=== PATIENT | male | born 1950 | race Caucasian/White ===

== ENCOUNTER → 2017-12-16 | Outpatient (CLI) | payer OTHER ==
[~2017-12-16] MED LIST: ASPI-113 PO; ASPI81TA21 PO; HYDR25TA4 PO; LOSA50TA6 PO; RANI150T85 PO
--- NOTE | 2017-12-16 11:15 | DIAGNOSTIC IMAGING REPORT ---
DUPLEX RENAL ARTERY CLINICAL HISTORY: 67 years-old Male presenting with RESISTENT HYPERTENSION.. TECHNIQUE: Real-time grayscale and color and spectral Doppler ultrasound imaging of the kidneys was performed. COMPARISON: 10/24/2009. FINDINGS: Right kidney: Normal echogenicity of renal parenchyma. Right kidney measures 12.4 cm. No hydronephrosis. No convincing evidence of calculus or mass. Intrarenal resistive indices range from 0.63 to 0.69. Normal intrarenal arterial waveforms. Renal artery patent with peak systolic velocity 53 cm/s proximally, 68 cm/s in the midportion, and 33 cm/s distally. Renal vein patent. Left kidney: Normal echogenicity of renal parenchyma. Left kidney measures 13.2 cm. No hydronephrosis. 2.1 cm cystic lesion at the lower pole. 10 mm hyperechogenic focus also at the lower pole with twinkling artifact suggestive of renal calculus. Intrarenal resistive indices range from 0.60 to 0.66. Normal intrarenal arterial waveforms. Renal artery patent with peak systolic velocity 64 cm/s proximally, 70 cm/s in the midportion, and 39 cm/s distally. Renal vein patent. Abdominal aorta: Patent. Peak systolic velocity 134 cm/s. Ratio of right renal artery PSV/aortic PSV: 0.51. Ratio of left renal artery PSV/aortic PSV: 0.52. Other: None. Reference ranges: Normal main renal artery peak systolic velocity less than 180 cm/s. Ratio of renal artery PSV to aortic PSV less than 3.5 equates to normal or less than 60% stenosis. IMPRESSION: 1. No evidence of renal artery stenosis. Normal renal resistive indices. 2. Possible nonobstructing left renal calculus. 3. No hydronephrosis. Electronically signed by: Thomas Pierce M.D. 12/16/2017 11:14 AM Dictated Date/Time: 12/16/2017 11:10 AM
== END | disposition home or self-care (01) ==
LOC: C.ULTR 10:06
PROVIDERS: ATTEND Family Medicine
DX: I10 Essential (primary) hypertension (principal)

== ENCOUNTER 2021-03-15 08:08 | Inpatient (IN) ==
--- NOTE | 2021-03-15 08:49 | Emergency Department Note ---
History of Present Illness General Chief complaint: Illness Stated complaint: FEVER,BACK PAIN,COUGH,DRY MOUTH Time Seen by Provider: 03/15/21 08:24 History of Present Illness Maximum Pain Intensity: 5 Kiran is a 71-year-old male with a history of hypertension who presents to the emergency department for shortness of breath and cough. Says that beginning about 10 days ago, he did develop a productive cough with clear sputum; also noticed that he had general shortness of breath both with exertion and at rest. He had a telehealth visit with his PCP on Friday, with the impression of his symptoms reported to be a bronchitis. He was prescribed both azithromycin and prednisone, both of which he has since finished. While he said he noticed an initial improvement, he said that his cough and shortness of breath have since returned and gotten worse. Denies any positional relationship to these. He does endorse a fever most days, with max temperatures reaching around 101. He also endorses chills, night sweats, myalgias. He denies any sick contacts that he is aware of; lives with his and he reports that she is healthy. Denies any recent travel. Denies any known exposure to Covid. Denies any loss of taste or smell. He denies any history of heart or lung problems. He does not require supplemental oxygen at home. He denies any smoking history or occupational hazards/risk factors. Upon his arrival, he was found to be tachycardic and hypoxic to the high 80s, requiring 2 to 4 L nasal cannula to achieve saturations between 90 and 92%. Home Medications Medication Instructions Recorded Confirmed Type losartan 50 mg PO DAILY #0 tab 10/17/12 03/15/21 History amlodipine 5 mg PO DAILY 03/15/21 03/15/21 History ascorbic acid (vitamin C) 1,000 mg PO DAILY 03/15/21 03/15/21 History cholecalciferol (vitamin D3) 5,000 units PO DAILY 03/15/21 03/15/21 History cyclobenzaprine 5 mg PO TID PRN 03/15/21 03/15/21 History furosemide 40 mg PO DAILY 03/15/21 03/15/21 History magnesium citrate 160 mg PO DAILY 03/15/21 03/15/21 History triamterene-hydrochlorothiazid 1 tab PO DAILY 03/15/21 03/15/21 History Allergies Allergy/AdvReac Type Severity Reaction Status Date / Time peanut Allergy Sneezing Unverified 03/15/21 11:26 Past Med/Surg History Medical History CKD (chronic kidney disease), stage III Dyslipidemia GERD (gastroesophageal reflux disease) HTN (hypertension) with goal to be determined JOHN (obstructive sleep apnea) Prediabetes Surgical History S/P skin cancer resection Social History Smoking Status: Never smoker Second Hand Exposure: Yes ( stopped 1990); Do You Dip or Chew Tobacco: No; Hx Alcohol Use: Yes Alcohol type: beer Hx Substance Use: No Preferred Language: Uzbek Communication Ability: Effective Unit Assembler Required: No Beliefs That Will Affect Care: None Current Living Situation: Spouse Other Information That Helps Us Care for You: No Feels Safe at Home: Yes Safety Concerns: Feels Safe At This Time Assistive Devices: Oxygen - Continuous Review of Systems See HPI for pertinent positives & negatives. and A total of 10 systems reviewed and were otherwise negative Physical Exam Vital Signs Vital Signs - 24 hr 03/15/21 08:16 Temperature 36.9 C Temperature Source Oral Pulse Rate 105 H Respiratory Rate 18 Blood Pressure 100/63 Blood Pressure Mean 75 Pulse Oximetry 88 L Oxygen Delivery Method Room Air Sepsis Recent Fever Within 48 Hours No Sepsis New/Unexplained Change in Mental Status N/A Sepsis Action Taken by Nursing No Action Required Vital signs reviewed. Noted to be hypoxic on room air. General: Somewhat ill-appearing 71 yo male, in no significant distress. HEENT: No scleral icterus, PERRLA, neck supple. Atraumatic. Cardiovascular: Regular rate and rhythm, no extra sounds. Pulmonary: Coarse breath sounds to auscultation bilaterally, normal work of breathing. Abdomen: Soft, nontender, nondistended, positive bowel sounds. Musculoskeletal: Atraumatic, no peripheral edema. Neurologic: Patient awake alert and oriented x 3 Skin: Warm, dry, no rash Course Administered Medications Acetaminophen (Acetaminophen 325 Mg Tab) 650 mg PO Q4H PRN PRN Reason: Pain or Fever Stop: 04/14/21 13:31 Last Admin: 03/16/21 01:12 Dose: 650 mg Documented by: [id number] Albuterol (Albuterol Hfa 8 Gm Inhaler) 2 puffs INH Q6H PRN PRN Reason: Shortness Of Breath Or Wheezin Stop: 04/14/21 13:31 Last Admin: 03/17/21 20:51 Dose: 2 puffs Documented by: [id number] Amlodipine Besylate (Amlodipine Besylate 5 Mg Tab) 5 mg PO DAILY WADE Stop: 04/15/21 08:59 Last Admin: 03/18/21 08:13 Dose: 5 mg Documented by: [id number] Admin: 03/17/21 08:31 Dose: 5 mg Documented by: [id number] Admin: 03/16/21 08:22 Dose: 5 mg Documented by: [id number] Ascorbic Acid (Ascorbic Acid 500 Mg Tab) 1,000 mg PO DAILY WADE Stop: 04/15/21 08:59 Last Admin: 03/18/21 08:13 Dose: 1,000 mg Documented by: [id number] Admin: 03/17/21 08:28 Dose: 1,000 mg Documented by: [id number] Admin: 03/16/21 08:23 Dose: 1,000 mg Documented by: [id number] Enoxaparin Sodium (Enoxaparin Inj 120 Mg/0.8 Ml Syr) 111 mg SQ Q12H WADE Stop: 04/17/21 08:59 Last Admin: 03/18/21 09:28 Dose: 111 mg Documented by: [id number] Famotidine (Famotidine 10 Mg Tablet) 10 mg PO BID [facility] Stop: 04/14/21 20:59 Last Admin: 03/18/21 08:11 Dose: 10 mg Documented by: [id number] Admin: 03/17/21 20:21 Dose: 10 mg Documented by: [id number] Admin: 03/17/21 08:33 Dose: 10 mg Documented by: [id number] Admin: 03/16/21 20:43 Dose: 10 mg Documented by: [id number] Admin: 03/16/21 08:20 Dose: 10 mg Documented by: [id number] Admin: 03/15/21 20:00 Dose: 10 mg Documented by: [id number] Folic Acid (Folic Acid 1 Mg Tab) 1 mg PO QAM WADE Stop: 04/15/21 08:59 Last Admin: 03/18/21 08:12 Dose: 1 mg Documented by: [id number] Admin: 03/17/21 08:29 Dose: 1 mg Documented by: [id number] Admin: 03/16/21 08:24 Dose: 1 mg Documented by: [id number] Furosemide (Furosemide 40 Mg Tab) 40 mg PO DAILY WADE Stop: 04/15/21 08:59 Last Admin: 03/16/21 08:24 Dose: 40 mg Documented by: [id number] Guaifenesin (Guaifenesin 600 Mg Tabcr) 600 mg PO Q12 WADE Stop: 04/15/21 20:59 Last Admin: 03/18/21 08:10 Dose: 600 mg Documented by: [id number] Admin: 03/17/21 20:22 Dose: 600 mg Documented by: [id number] Admin: 03/17/21 08:33 Dose: 600 mg Documented by: [id number] Admin: 03/16/21 20:43 Dose: 600 mg Documented by: [id number] Dexamethasone 6 mg/ Syringe 1.5 mls @ 1 mls/min IV DAILY WADE Stop: 03/24/21 09:02 Last Admin: 03/18/21 08:33 Dose: 1 mls/min Documented by: [id number] Admin: 03/17/21 09:05 Dose: 1 mls/min Documented by: [id number] Admin: 03/16/21 10:05 Dose: 1 mls/min Documented by: [id number] Remdesivir 100 mg/ Sodium (Chloride) 250 mls @ 250 mls/hr IV Q24H WADE; Protocol Stop: 03/19/21 12:59 Last Admin: 03/18/21 12:53 Dose: 250 mls/hr Documented by: [id number] Infusion: 03/17/21 18:58 Dose: 0 mls/hr Documented by: [id number] Admin: 03/17/21 11:58 Dose: 250 mls/hr Documented by: [id number] Infusion: 03/16/21 22:47 Dose: 0 mls/hr Documented by: [id number] Admin: 03/16/21 12:18 Dose: 250 mls/hr Documented by: [id number] Ceftriaxone Sodium 2,000 mg/ (Dextrose) 70 mls @ 100 mls/hr IV DAILY WADE; Protocol Stop: 03/23/21 15:14 Last Admin: 03/18/21 08:33 Dose: 100 mls/hr Documented by: [id number] Infusion: 03/17/21 09:06 Dose: 0 mls/hr Documented by: [id number] Admin: 03/17/21 08:21 Dose: 100 mls/hr Documented by: [id number] Infusion: 03/16/21 22:46 Dose: 0 mls/hr Documented by: [id number] Admin: 03/16/21 16:28 Dose: 100 mls/hr Documented by: [id number] Doxycycline Hyclate 100 mg/ (Dextrose) 110 mls @ 50 mls/hr IV Q12H WADE; Protocol Stop: 03/23/21 15:14 Last Admin: 03/18/21 14:14 Dose: 50 mls/hr Documented by: [id number] Infusion: 03/18/21 04:32 Dose: 0 mls/hr Documented by: [id number] Admin: 03/18/21 02:36 Dose: 50 mls/hr Documented by: [id number] Infusion: 03/17/21 20:19 Dose: 0 mls/hr Documented by: [id number] Admin: 03/17/21 15:22 Dose: 50 mls/hr Documented by: [id number] Infusion: 03/17/21 05:15 Dose: 0 mls/hr Documented by: [id number] Admin: 03/17/21 03:11 Dose: 50 mls/hr Documented by: [id number] Infusion: 03/16/21 22:46 Dose: 0 mls/hr Documented by: [id number] Admin: 03/16/21 16:29 Dose: 50 mls/hr Documented by: [id number] Insulin Aspart (Insulin Aspart 100 Units/Ml 3 Ml Pen) 0 units SC ACHS WADE Stop: 04/15/21 20:59 Last Admin: 03/18/21 08:00 Dose: 4 units Documented by: [id number] Cosigned by: [id number] Admin: 03/17/21 20:28 Dose: 1 units Documented by: [id number] Cosigned by: [id number] Admin: 03/17/21 17:00 Dose: 4 units Documented by: [id number] Cosigned by: [id number] Admin: 03/17/21 12:09 Dose: 3 units Documented by: [id number] Cosigned by: [id number] Admin: 03/17/21 09:00 Dose: Not Given Documented by: [id number] Cosigned by: [id number] Admin: 03/16/21 22:42 Dose: Not Given Documented by: [id number] Cosigned by: [id number] Losartan Potassium (Losartan Potassium 50 Mg Tab) 50 mg PO DAILY WADE Stop: 04/15/21 08:59 Last Admin: 03/16/21 08:23 Dose: 50 mg Documented by: [id number] Magnesium Oxide (Magnesium Oxide 400 Mg Tab) 400 mg PO DAILY WADE Stop: 04/15/21 08:59 Last Admin: 03/18/21 08:14 Dose: 400 mg Documented by: [id number] Admin: 03/17/21 08:33 Dose: 400 mg Documented by: [id number] Admin: 03/16/21 08:24 Dose: 400 mg Documented by: [id number] Sodium Chloride (Sodium Chloride 0.9% 10ml Flush) 30 ml IV Q24H WADE Stop: 03/19/21 14:01 Last Admin: 03/18/21 14:15 Dose: 30 ml Documented by: [id number] Admin: 03/17/21 13:19 Dose: 30 ml Documented by: [id number] Admin: 03/16/21 14:01 Dose: 30 ml Documented by: [id number] Admin: 03/15/21 16:42 Dose: 30 ml Documented by: [id number] Thiamine HCl (Thiamine Hcl 100 Mg Tab) 100 mg PO QAM WADE Stop: 04/15/21 08:59 Last Admin: 03/18/21 08:15 Dose: 100 mg Documented by: [id number] Admin: 03/17/21 08:32 Dose: 100 mg Documented by: [id number] Admin: 03/16/21 10:05 Dose: Not Given Documented by: [id number] Triamterene/Hydrochlorothiazide (Triamterene/Hctz 37.5/25mg Tab) 1 tab PO DAILY WADE Stop: 04/15/21 08:59 Last Admin: 03/16/21 08:25 Dose: 1 tab Documented by: [id number] Vitamin D (Cholecalciferol 1,000 Units 25 Mcg Tab) 5,000 units PO DAILY WADE Stop: 04/15/21 08:59 Last Admin: 03/18/21 08:11 Dose: 5,000 units Documented by: [id number] Admin: 03/17/21 08:30 Dose: 5,000 units Documented by: [id number] Admin: 03/16/21 08:20 Dose: 5,000 units Documented by: [id number] Discontinued Medications Al Hydrox/Mg Hydrox/Simethicone (Aluminum/Magnesium/Simeth (Maalox Max) 30 Ml Udc) 30 ml PO NOW STA Stop: 03/15/21 22:45 Last Admin: 03/15/21 23:08 Dose: Not Given Documented by: [id number] Hydrox/Mg Hydrox/Simethicone (Aluminum/Magnesium Susp 30 Ml Udc) Confirm Administered Dose 30 ml .ROUTE .STK-MED ONE Stop: 03/15/21 22:47 Last Admin: 03/15/21 23:08 Dose: Not Given Documented by: [id number] Albuterol (Albut/Ipratrop 3mg/0.5mg Neb 3 Ml Vial) 3 ml NEB NOW STA Stop: 03/15/21 08:55 Last Admin: 03/15/21 09:37 Dose: 3 ml Documented by: [id number] Dexamethasone (Dexamethasone Sod Inj 4 Mg/Ml Vial) Confirm Administered Dose 8 mg .ROUTE .STK-MED ONE Stop: 03/15/21 09:35 Last Admin: 03/15/21 10:13 Dose: 6 mg Documented by: [id number] Enoxaparin Sodium (Enoxaparin Inj 40 Mg/0.4 Ml Syr) 40 mg SQ QAM WADE Stop: 04/14/21 13:31 Last Admin: 03/15/21 16:40 Dose: 40 mg Documented by: [id number] Heparin Sodium/Dextrose (Heparin Iv Adult Wt-Based Standard *No* Bolus Protocol) 1 ea IV Q15M WADE; Protocol Stop: 03/16/21 01:26 Last Admin: 03/16/21 00:22 Dose: Not Given Documented by: [id number] Admin: 03/15/21 23:52 Dose: Not Given Documented by: [id number] Sodium Chloride (Nss 1000ml) 1,000 mls @ 999 mls/hr IV .Q1H1M WADE Stop: 03/15/21 10:00 Last Infusion: 03/15/21 16:38 Dose: 0 mls/hr Documented by: [id number] Admin: 03/15/21 10:13 Dose: 999 mls/hr Documented by: [id number] Dexamethasone 6 mg/ Syringe 1.5 mls @ 1 mls/min IV ONE ONE Stop: 03/15/21 08:56 Last Admin: 03/15/21 10:14 Dose: Not Given Documented by: [id number] Potassium Chloride (K [place] / Wtr) 10 meq in 100 mls @ 100 mls/hr IV ONE ONE Stop: 03/15/21 11:07 Last Infusion: 03/15/21 11:14 Dose: 0 mls/hr Documented by: [id number] Admin: 03/15/21 10:14 Dose: 100 mls/hr Documented by: [id number] Potassium Phosphate 15 mmol/ (Sodium Chloride) 255 mls @ 88 mls/hr IV NOW STA Stop: 03/15/21 13:07 Last Infusion: 03/15/21 16:37 Dose: 0 mls/hr Documented by: [id number] Admin: 03/15/21 11:21 Dose: 88 mls/hr Documented by: [id number] Potassium Chloride/Sodium Chloride (Normal Saline W/20 Meq Kcl) 20 meq in 1,000 mls @ 100 mls/hr IV .Q10H ONE Stop: 03/15/21 23:59 Last Infusion: 03/16/21 00:15 Dose: 0 mls/hr Documented by: [id number] Admin: 03/15/21 16:38 Dose: 100 mls/hr Documented by: [id number] Remdesivir 200 mg/ Sodium (Chloride) 250 mls @ 125 mls/hr IV ONE ONE; Protocol Stop: 03/15/21 15:59 Last Infusion: 03/15/21 16:38 Dose: 0 mls/hr Documented by: [id number] Admin: 03/15/21 14:30 Dose: 125 mls/hr Documented by: [id number] Heparin Sodium/Dextrose (Heparin Sodium/Dextrose) 25,000 units in 500 mls @ 0 mls/hr IV .Q0M WADE; Protocol Stop: 04/14/21 23:54 Last Titration: 03/18/21 07:08 Dose: 1,450 units/hr, 29 mls/hr Documented by: [id number] Cosigned by: [id number] Admin: 03/18/21 01:04 Dose: 1,450 units/hr, 29 mls/hr Documented by: [id number] Cosigned by: [id number] Titration: 03/18/21 01:04 Dose: 1,450 units/hr, 29 mls/hr Documented by: [id number] Cosigned by: [id number] Titration: 03/17/21 18:58 Dose: 1,450 units/hr, 29 mls/hr Documented by: [id number] Cosigned by: [id number] Titration: 03/17/21 15:00 Dose: 1,450 units/hr, 29 mls/hr Documented by: [id number] Cosigned by: [id number] Titration: 03/17/21 09:14 Dose: 1,450 units/hr, 29 mls/hr Documented by: [id number] Cosigned by: [id number] Titration: 03/17/21 07:35 Dose: 0 units/hr, 0 mls/hr Documented by: [id number] Cosigned by: [id number] Titration: 03/17/21 07:08 Dose: 1,650 units/hr, 33 mls/hr Documented by: [id number] Cosigned by: [id number] Admin: 03/17/21 06:20 Dose: 1,650 units/hr, 33 mls/hr Documented by: [id number] Cosigned by: [id number] Titration: 03/17/21 06:20 Dose: 1,650 units/hr, 33 mls/hr Documented by: [id number] Cosigned by: [id number] Titration: 03/16/21 19:12 Dose: 1,650 units/hr, 33 mls/hr Documented by: [id number] Cosigned by: [id number] Admin: 03/16/21 15:17 Dose: 1,650 units/hr, 33 mls/hr Documented by: [id number] Cosigned by: [id number] Titration: 03/16/21 15:17 Dose: 1,650 units/hr, 33 mls/hr Documented by: [id number] Cosigned by: [id number] Admin: 03/16/21 00:30 Dose: 1,650 units/hr, 33 mls/hr Documented by: [id number] Cosigned by: [id number] Potassium Chloride (K [place] / Wtr) 10 meq in 100 mls @ 100 mls/hr IV Q1H WADE Stop: 03/16/21 04:59 Last Infusion: 03/16/21 22:48 Dose: 0 mls/hr Documented by: [id number] Admin: 03/16/21 05:22 Dose: 100 mls/hr Documented by: [id number] Infusion: 03/16/21 05:05 Dose: 100 mls/hr Documented by: [id number] Admin: 03/16/21 04:05 Dose: 100 mls/hr Documented by: [id number] Infusion: 03/16/21 03:37 Dose: 100 mls/hr Documented by: [id number] Admin: 03/16/21 02:37 Dose: 100 mls/hr Documented by: [id number] Infusion: 03/16/21 02:12 Dose: 100 mls/hr Documented by: [id number] Admin: 03/16/21 01:12 Dose: 100 mls/hr Documented by: [id number] Furosemide 40 mg/ Syringe 4 mls @ 4 mls/min IV ONE ONE Stop: 03/16/21 16:34 Last Admin: 03/16/21 18:25 Dose: 4 mls/min Documented by: [id number] Tocilizumab 800 mg/ Sodium (Chloride) 100 mls @ 100 mls/hr IV NOW ONE Stop: 03/16/21 17:44 Last Infusion: 03/16/21 22:43 Dose: 0 mls/hr Documented by: [id number] Admin: 03/16/21 20:42 Dose: 100 mls/hr Documented by: [id number] Miscellaneous (Heparin Gtt - Stop Order) 1 ea N/A ONE ONE Stop: 03/18/21 09:01 Last Admin: 03/18/21 08:36 Dose: 1 ea Documented by: [id number] Morphine Sulfate (Morphine Sulfate 2 Mg/Ml Carp) Confirm Administered Dose 2 mg .ROUTE .STK-MED ONE Stop: 03/15/21 23:03 Last Admin: 03/15/21 23:03 Dose: 2 mg Documented by: [id number] Morphine Sulfate (Morphine Sulfate 2 Mg/Ml Carp) 2 mg IV NOW STA Stop: 03/15/21 23:02 Last Admin: 03/15/21 23:09 Dose: Not Given Documented by: [id number] Potassium Chloride (Potassium Chloride 20 Meq/15 Ml Udc) 40 meq PO NOW STA Stop: 03/15/21 10:05 Last Admin: 03/15/21 10:52 Dose: Not Given Documented by: [id number] Potassium Chloride (Potassium Chloride Crtab 20 Meq Tabcr) 40 meq PO TODAY@1332 WADE Stop: 03/15/21 17:15 Last Admin: 03/15/21 17:15 Dose: 40 meq Documented by: [id number] Potassium Chloride (Potassium Chloride Crtab 20 Meq Tabcr) 40 meq PO ONE ONE Stop: 03/15/21 22:57 Last Admin: 03/15/21 23:52 Dose: 40 meq Documented by: [id number] Potassium Phosphate (Potassium Phos 3 Mmol/1 Ml Infusion) 15 mmol IV NOW STA Stop: 03/15/21 10:06 Last Admin: 03/15/21 10:52 Dose: Not Given Documented by: [id number] Medical Decision Making Differential Diagnosis Reactive airway disease, pneumonia, COVID, pneumothorax, COPD, CHF, infections, cardiac ischemia, pulmonary embolism, musculoskeletal, gastrointestinal, as well as other pathologies. Medical Records Attestation: I reviewed the patient's medical records. Home Medications Current Medication List: was personally reviewed by me Laboratory Data Attestation: I reviewed the patient's lab results. Result diagrams: 03/16/21 06:32 03/18/21 06:18 Lab Results 03/15/21 03/15/21 03/15/21 Range/Units 08:55 08:55 08:57 WBC 7.09 (4.8-10.8) K/uL RBC 4.67 L (4.7-6.1) M/uL Hgb 14.3 (14.0-18.0) g/dL Hct 41.9 L (42-52) % MCV 89.7 (80-100) fL MCH 30.6 (25-34) pg MCHC 34.1 (32-36) g/dL RDW Std Deviation 43.2 (36.4-46.3) fL RDW Coeff of Anni 13.2 (11.5-14.5) % Plt Count 217 (130-400) K/uL MPV 9.3 (7.4-10.4) fL Immature Gran % (Auto) 0.1 % Neut % (Auto) 85.5 % Lymph % (Auto) 10.9 % [place] % (Auto) 3.4 % Eos % (Auto) 0.0 % Baso % (Auto) 0.1 % Neut # (Auto) 6.06 (1.4-6.5) K/uL Lymph # (Auto) 0.77 L (1.2-3.4) K/uL [place] # (Auto) 0.24 (0.11-0.59) K/uL Eos # (Auto) 0.00 (0-0.5) K/uL Baso # (Auto) 0.01 (0-0.2) K/uL Immature Gran # (Auto) 0.01 (0.00-0.02) K/uL PT (9.0-12.0) Seconds INR (0.9-1.1) APTT (21.0-31.0) Seconds PTT Ratio Sodium (136-145) mmol/L Potassium (3.5-5.1) mmol/L Chloride (98-107) mmol/L Carbon Dioxide (21-32) mmol/L Anion Gap (3-11) BUN (7-18) mg/dl Creatinine (0.6-1.4) mg/dl Est Cr Clr Drug Dosing ml/min Est GFR ( Amer) ml/min Est GFR (Non-Af Amer) ml/min BUN/Creatinine Ratio (10-20) Glucose (70-99) mg/dl Lactate (0.4-2.0) mmol/L Calcium (8.5-10.1) mg/dl Phosphorus (2.5-4.9) mg/dl Magnesium (1.8-2.4) mg/dl Total Bilirubin (0.2-1) mg/dl AST (15-37) U/L ALT (12-78) U/L Alkaline Phosphatase (45-117) U/L Troponin I (0-0.045) ng/ml Total Protein (6.4-8.2) gm/dl Albumin (3.4-5.0) gm/dl Globulin (2.5-4.0) gm/dl Albumin/Globulin Ratio (0.9-2) Procalcitonin (0-0.5) ng/ml COVID-19 Eval Order Covid19 at [facility] SARS-CoV-2 (PCR) POSITIVE A* (Negative) 03/15/21 03/15/21 03/15/21 Range/Units 08:57 08:57 08:57 WBC (4.8-10.8) K/uL RBC (4.7-6.1) M/uL Hgb (14.0-18.0) g/dL Hct (42-52) % MCV (80-100) fL MCH (25-34) pg MCHC (32-36) g/dL RDW Std Deviation (36.4-46.3) fL RDW Coeff of Anni (11.5-14.5) % Plt Count (130-400) K/uL MPV (7.4-10.4) fL Immature Gran % (Auto) % Neut % (Auto) % Lymph % (Auto) % [place] % (Auto) % Eos % (Auto) % Baso % (Auto) % Neut # (Auto) (1.4-6.5) K/uL Lymph # (Auto) (1.2-3.4) K/uL [place] # (Auto) (0.11-0.59) K/uL Eos # (Auto) (0-0.5) K/uL Baso # (Auto) (0-0.2) K/uL Immature Gran # (Auto) (0.00-0.02) K/uL PT 10.4 (9.0-12.0) Seconds INR 1.0 (0.9-1.1) APTT 29.3 (21.0-31.0) Seconds PTT Ratio 1.1 Sodium 132 L (136-145) mmol/L Potassium 2.5 L* (3.5-5.1) mmol/L Chloride 96 L (98-107) mmol/L Carbon Dioxide 28 (21-32) mmol/L Anion Gap 7.0 (3-11) BUN 23 H (7-18) mg/dl Creatinine 1.58 H (0.6-1.4) mg/dl Est Cr Clr Drug Dosing 55.0 ml/min Est GFR ( Amer) 50.3 ml/min Est GFR (Non-Af Amer) 43.4 ml/min BUN/Creatinine Ratio 14.8 (10-20) Glucose 135 H (70-99) mg/dl Lactate 1.3 (0.4-2.0) mmol/L Calcium 8.3 L (8.5-10.1) mg/dl Phosphorus (2.5-4.9) mg/dl Magnesium 2.4 (1.8-2.4) mg/dl Total Bilirubin 0.5 (0.2-1) mg/dl AST 64 H (15-37) U/L ALT 54 (12-78) U/L Alkaline Phosphatase 63 (45-117) U/L Troponin I 0.025 (0-0.045) ng/ml Total Protein 7.1 (6.4-8.2) gm/dl Albumin 2.7 L (3.4-5.0) gm/dl Globulin 4.4 H (2.5-4.0) gm/dl Albumin/Globulin Ratio 0.6 L (0.9-2) Procalcitonin (0-0.5) ng/ml COVID-19 Eval Order SARS-CoV-2 (PCR) (Negative) 03/15/21 03/15/21 Range/Units 08:57 10:08 WBC (4.8-10.8) K/uL RBC (4.7-6.1) M/uL Hgb (14.0-18.0) g/dL Hct (42-52) % MCV (80-100) fL MCH (25-34) pg MCHC (32-36) g/dL RDW Std Deviation (36.4-46.3) fL RDW Coeff of Anni (11.5-14.5) % Plt Count (130-400) K/uL MPV (7.4-10.4) fL Immature Gran % (Auto) % Neut % (Auto) % Lymph % (Auto) % [place] % (Auto) % Eos % (Auto) % Baso % (Auto) % Neut # (Auto) (1.4-6.5) K/uL Lymph # (Auto) (1.2-3.4) K/uL [place] # (Auto) (0.11-0.59) K/uL Eos # (Auto) (0-0.5) K/uL Baso # (Auto) (0-0.2) K/uL Immature Gran # (Auto) (0.00-0.02) K/uL PT (9.0-12.0) Seconds INR (0.9-1.1) APTT (21.0-31.0) Seconds PTT Ratio Sodium (136-145) mmol/L Potassium (3.5-5.1) mmol/L Chloride (98-107) mmol/L Carbon Dioxide (21-32) mmol/L Anion Gap (3-11) BUN (7-18) mg/dl Creatinine (0.6-1.4) mg/dl Est Cr Clr Drug Dosing ml/min Est GFR ( Amer) ml/min Est GFR (Non-Af Amer) ml/min BUN/Creatinine Ratio (10-20) Glucose (70-99) mg/dl Lactate (0.4-2.0) mmol/L Calcium (8.5-10.1) mg/dl Phosphorus 2.4 L (2.5-4.9) mg/dl Magnesium (1.8-2.4) mg/dl Total Bilirubin (0.2-1) mg/dl AST (15-37) U/L ALT (12-78) U/L Alkaline Phosphatase (45-117) U/L Troponin I (0-0.045) ng/ml Total Protein (6.4-8.2) gm/dl Albumin (3.4-5.0) gm/dl Globulin (2.5-4.0) gm/dl Albumin/Globulin Ratio (0.9-2) Procalcitonin 0.38 (0-0.5) ng/ml COVID-19 Eval Order SARS-CoV-2 (PCR) (Negative) Imaging Data Radiologist's Impression: Chest X-Ray 03/15/21 08:51 XR chest 1V portable HISTORY: SEPSIS COMPARISON: Chest 10/17/2012. FINDINGS: No pneumothorax. No pleural effusions. The heart is mildly enlarged. There are patchy peripheral bilateral airspace opacities, right greater than left. There is mild elevation of the right hemidiaphragm, unchanged. IMPRESSION: Hazy patchy peripheral airspace opacities, right greater than left. This favors a viral pneumonia. ACT 112: Negative or not required by law. Electronically signed by: Preston Dennis M.D. 03/15/2021 9:38 AM ECG Data Attestation: I personally reviewed and interpreted this ECG as follows: Indication: + SOB/dyspnea Rate (beats per minute): 98 Rhythm: + normal sinus ECG Intervals/blocks: + Right Bundle branch block and + Prolonged QT (492) ECG Findings: + Q waves (Inferior) and + PVCs Blood Pressure Blood Pressure Findings: Elevated blood pressure Blood Pressure Disposition: further management by hospitalist MDM Narrative This patient was evaluated and appeared to be in no significant distress. IV access was obtained in laboratory work was drawn. In order for cardiac monitoring was placed in the patient is noted to be in a normal sinus rhythm with occasional PVCs. Patient was placed on nasal cannula oxygen As he was noted to be hypoxic on room air. Chest x-ray was performed and reveals bilateral pulmonary infiltrates consistent with viral pneumonia. Patient Covid swab was positive. He did receive IV dexamethasone and they do another treatment. He was hydrated with normal saline solution. Laboratory work is consistent with viral ideology. Patient lives at home with his , who is also ill but less so, per his account. Patient will require hospitalization for further treatment of the viral pneumonitis and hypoxia. He's expressed an understanding of the plan and agrees. The hospitalist was consulted for admission and further management. Impression & Plan Pneumonia due to COVID-19 virus, Acute respiratory failure with hypoxia Discharge Plan Visit Data Chief Complaint: Illness Stated Complaint: FEVER,BACK PAIN,COUGH,DRY MOUTH ED Provider: Jesica Garcia ED Midlevel Provider: Lloyd Montes De Oca. Discharge Problem: Pneumonia due to COVID-19 virus, Acute respiratory failure with hypoxia Patient Disposition: Admitted As Inpatient Discharge Instructions Interventions: ED Discharge Assessment Last Done: 03/15/21 13:17
[2021-03-15] MEDS ORDERED: ALBUT/IPRATROP 3MG/0.5MG NEB 3 ML VIAL NEB STA (08:54)
[2021-03-15] MEDS ORDERED: dexAMETHasone 6 MG in SYRINGE 0 ML IV ONE (08:55)
[2021-03-15] MEDS ORDERED: SODIUM CHLORIDE 0.9% 1000ML 1,000 ML IV SCH (09:00)
[2021-03-15 09:11] LABS: Basophils # (auto) 0.01 K/uL (0-0.2); Basophils % (auto) 0.1 %; Hematocrit (blood only) 41.9 % (42-52); Hemoglobin 14.3 g/dL (14.0-18.0); Immature Granulocytes # (auto) 0.01 K/uL (0.00-0.02); Immature Granulocytes % (auto) 0.1 %; Lymphocytes # (auto) 0.77 K/uL (1.2-3.4); Lymphocytes % (auto) 10.9 %; Mean Corpuscular Hemoglobin 30.6 pg (25-34); Mean Corpuscular Hgb Conc 34.1 g/dL (32-36); Mean Corpuscular Volume 89.7 fL (80-100); Mean Platelet Volume 9.3 fL (7.4-10.4); Monocytes # (auto) 0.24 K/uL (0.11-0.59); Monocytes % (auto) 3.4 %; Neutrophils # (auto) 6.06 K/uL (1.4-6.5); Neutrophils % (auto) 85.5 %; Platelet Count 217 K/uL (130-400); RDW Coefficient of Variation 13.2 % (11.5-14.5); RDW Standard Deviation 43.2 fL (36.4-46.3); Red Blood Count 4.67 M/uL (4.7-6.1); White Blood Count 7.09 K/uL (4.8-10.8)
[2021-03-15 09:23] LABS: Partial Thromboplastin Ratio 1.1; Partial Thromboplastin Time 29.3 Seconds (21.0-31.0); Prothrombin Time 10.4 Seconds (9.0-12.0)
[2021-03-15] MEDS ORDERED: DEXAMETHASONE SOD INJ 4 MG/ML VIAL ONE (09:34)
--- NOTE | 2021-03-15 09:39 | XRay Report ---
XR chest 1V portable HISTORY: SEPSIS COMPARISON: Chest 10/17/2012. FINDINGS: No pneumothorax. No pleural effusions. The heart is mildly enlarged. There are patchy perip heral bilateral airspace opacities, right greater than left. There is mild elevation of the right hem idiaphragm, unchanged. IMPRESSION: Hazy patchy peripheral airspace opacities, right greater than left. This favors a viral pneumonia. ACT 112: Negative or not required by law. Electronically signed by: Preston Dennis M.D. 03/15/2021 9:38 AM
[2021-03-15 09:53] LABS: Albumin Globulin Ratio 0.6 (0.9-2); Albumin Level 2.7 gm/dl (3.4-5.0); BUN Creatinine Ratio 14.8 (10-20); Bilirubin,Total 0.5 mg/dl (0.2-1); Calcium 8.3 mg/dl (8.5-10.1); Est GFR (African American) 50.3 ml/min; Est GFR (Non-African American) 43.4 ml/min; Globulin 4.4 gm/dl (2.5-4.0); Magnesium 2.4 mg/dl (1.8-2.4); Total Protein 7.1 gm/dl (6.4-8.2); Troponin I 0.025 ng/ml (0-0.045)
[2021-03-15 10:02] LABS: Potassium 2.5 mmol/L (3.5-5.1)
[2021-03-15] MEDS ORDERED: POTASSIUM CHLORIDE 20 MEQ/15 ML UDC PO STA (10:04)
[2021-03-15] MEDS ORDERED: POTASSIUM PHOS 3 MMOL/1 ML INFUSION IV STA (10:05)
[2021-03-15] MEDS ORDERED: POTASSIUM CHLORIDE / WTR 10 MEQ/100 ML PLCT IV ONE (10:08)
[2021-03-15] MEDS ORDERED: POTASSIUM PHOSPHATE 15 MMOL in SODIUM CHLORIDE 0.9% 250 ML IV STA (10:14)
[2021-03-15] MEDS ORDERED: POTASSIUM CHLORIDE / WTR 10 MEQ/100 ML PLCT IV SCH (10:15)
--- NOTE | 2021-03-15 10:32 | History & Physical Report ---
Date of Service March 15, 2021 Assessment & Plan (1) Pneumonia due to COVID-19 virus: Acute respiratory failure with hypoxia Multifocal COVID pneumonia COVID Screen: Positive on March 15, 2021 CXR:Hazy patchy peripheral airspace opacities, right greater than left. This favors a viral pneumonia. Procalcitonin: Normal Troponin negative CRP, Ferritin--Pending Blood Cultures obtained Start on Remdesivir, Dexamethasone Isolation precautions--Airborne/Contact Encourage frequent Proning Lasix as needed Albuterol PRN Continue Supplemental Oxygen as needed DVT prophylaxis-Lovenox SQ Monitor LFTs, renal function while on Remdesivir Hypokalemia Likely secondary to diuretics, poor oral intake Potassium levels 2.5 Replace potassium supplements as needed Normal magnesium levels Prediabetes Last HbA1c 6.4 in 2020 Update A1c Abnormal EKG Denies any anginal symptoms Initial troponin negative Trend troponin Repeat EKG in the morning Consider echo if needed Mild hyponatremia Sodium levels 132 We will give gentle IV fluids Monitor sodium levels CKD stage III Baseline creatinine 1.4 Creatinine 1.58 Monitor renal function while on remdesivir, diuretics Avoid nephrotoxic agents as able Hypertension Continue losartan, triamterene hydrochlorothiazide, amlodipine Monitor blood pressure Hypothyroidism As per records Currently not on any levothyroxine Obstructive sleep apnea Intolerance to CPAP DVT prophylaxis Lovenox SQ CODE STATUS Full code Disposition Expected discharge home when medically stable. History of Present Illness Chief Complaint: Shortness of breath, cough Primary Care Provider: Alban Gordillo DO Patient is a 71-year-old male with history of hypertension, CKD stage III, obstructive sleep apnea and intolerance to CPAP, prediabetes, dyslipidemia, GERD, hypothyroidism as per records and other medical problems presents with history of worsening shortness of breath, cough with clear expectoration since 10 days duration. Patient recently completed a course of azithromycin, prednisone for 5 days prescribed by PCP without any relief. He states having dyspnea at rest and with activity as well. Also states having decreased appetite, generalized weakness. He denies any sick contact, recent travel. He admits to having fever since 3 days duration intermittently. Patient reports sotelo ving low back pain intermittently since past 2 years, dull aching in nature, nonradiating, not associated with any spasms. He has been using ibuprofen, Tylenol on and off for controlling his back pain. Denies any history of chest pain, palpitations, dizziness, pedal edema, wheezing, hemoptysis, headache, change in vision, nausea, vomiting, abdominal pain, dysuria, hematuria, loss of taste or smell. Allergies Allergy/AdvReac Type Severity Reaction Status Date / Time peanut Allergy Sneezing Unverified 03/15/21 11:26 Home Medications Medication Instructions Recorded Confirmed Type losartan 50 mg PO DAILY #0 tab 10/17/12 03/15/21 History amlodipine 5 mg PO DAILY 03/15/21 03/15/21 History ascorbic acid (vitamin C) 1,000 mg PO DAILY 03/15/21 03/15/21 History cholecalciferol (vitamin D3) 5,000 units PO DAILY 03/15/21 03/15/21 History cyclobenzaprine 5 mg PO TID PRN 03/15/21 03/15/21 History furosemide 40 mg PO DAILY 03/15/21 03/15/21 History magnesium citrate 160 mg PO DAILY 03/15/21 03/15/21 History triamterene-hydrochlorothiazid 1 tab PO DAILY 03/15/21 03/15/21 History Past Med/Surg History Medical History CKD (chronic kidney disease), stage III Dyslipidemia GERD (gastroesophageal reflux disease) HTN (hypertension) with goal to be determined JOHN (obstructive sleep apnea) Prediabetes Surgical History S/P skin cancer resection Social History Smoking Status: Never smoker Hx Alcohol Use: Yes Preferred Language: Vincentian Feels Safe at Home: Yes Review of Systems Review of Systems: All systems reviewed & are unremarkable except as noted in HPI & below Physical Exam Physical Exam: Physical Exam: Vitals signs as noted above General Appearance:Moderately built and nourished, no apparent distress Head: normocephalic, Atraumatic Eyes: normal inspection, EOMI Neck: supple, Trachea midline Respiratory/Chest: Decreased breath sounds, CTA, No accessory muscle use Cardiovascular: S1, S2, No murmur Abdomen/GI:Soft, Non tender, Bowel sounds present Extremities/Musculoskeletal:normal inspection, no edema Neurologic/Psych:AAOX3, grossly no focal neurological deficits Skin: normal color, warm Results & Data Results & Data ([facility]) Vital Signs (Past 12 Hours) Vital Signs Temp Pulse Resp BP Pulse Ox 03/15/21 10:17 36.7 C 03/15/21 10:00 96 H 19 124/68 94 03/15/21 09:38 18 97 03/15/21 09:30 95 H 22 97/65 L 98 03/15/21 09:10 96 H 18 101/71 93 03/15/21 08:55 22 94 03/15/21 08:50 94 03/15/21 08:16 36.9 C 105 H 18 100/63 88 L Laboratory Results Short CBC 03/15/21 Range/Units 08:57 WBC 7.09 (4.8-10.8) K/uL Hgb 14.3 (14.0-18.0) g/dL Hct 41.9 L (42-52) % Plt Count 217 (130-400) K/uL BMP 03/15/21 08:57 Sodium 132 L Potassium 2.5 L* Chloride 96 L Carbon Dioxide 28 BUN 23 H Creatinine 1.58 H Glucose 135 H Calcium 8.3 L Cardiac Enzymes 03/15/21 Range/Units 08:57 Troponin I 0.025 (0-0.045) ng/ml Liver Function 03/15/21 Range/Units 08:57 Total Bilirubin 0.5 (0.2-1) mg/dl AST 64 H (15-37) U/L ALT 54 (12-78) U/L Alkaline Phosphatase 63 (45-117) U/L Albumin 2.7 L (3.4-5.0) gm/dl Diagnostic Findings CXR: Hazy patchy peripheral airspace opacities, right greater than left. This favors a viral pneumonia. ECG Additional Comments: EKG: Normal sinus rhythm, occasional PVCs, right bundle branch block, nonspecific T wave changes in inferior leads.
[2021-03-15] MEDS ORDERED: ENOXAPARIN INJ 40 MG/0.4 ML SYR SQ SCH (13:32)
[2021-03-15] MEDS ORDERED: ACETAMINOPHEN 325 MG TAB PO PRN (13:32)
[2021-03-15] MEDS ORDERED: CYCLOBENZAPRINE HCL 5 MG TAB PO PRN (13:32)
[2021-03-15] MEDS ORDERED: oxyCODONE HCL IR 5 MG TAB (IMMEDIATE RELEASE) PO PRN (13:32)
[2021-03-15] MEDS ORDERED: POTASSIUM CHLORIDE CRTAB 20 MEQ TABCR PO SCH (13:32)
[2021-03-15] MEDS ORDERED: POTASSIUM CHLORIDE CRTAB 20 MEQ TABCR PO ONE ×2 (13:32→22:56)
[2021-03-15] MEDS ORDERED: POLYETHYLENE (MIRALAX) 17 GM PACK PO PRN (13:32)
[2021-03-15] MEDS ORDERED: NSS + 20MEQ KCL 20 MEQ/1,000 ML BAG IV ONE (14:00)
[2021-03-15] MEDS ORDERED: REMDESIVIR 200 MG in SODIUM CHLORIDE 0.9% 210 ML IV ONE (14:00)
--- NOTE | 2021-03-15 15:34 | Electrocardiogram Report ---
Test Reason : Blood Pressure : / mmHG Vent. Rate : 098 BPM Atrial Rate : 098 BPM P-R Int : 158 ms QRS Dur : 116 ms QT Int : 386 ms P-R-T Axes : 030 225 019 degrees QTc Int : 492 ms Sinus rhythm with occasional Premature ventricular complexes Possible Left atrial enlargement Right bundle branch block Inferior infarct , age undetermined Abnormal ECG When compared with ECG of 08-NOV-2009 15:03, Premature ventricular complexes are now Present Right bundle branch block has replaced Incomplete right bundle branch block Inferior infarct is now Present Confirmed by Cameron Pineda ([id number]) on 03/15/2021 3:34:38 PM Referred By: REFERRED SELF Confirmed By:Cameron Pineda
[2021-03-15] MEDS: SODIUM CHLORIDE 0.9% 10ML FLUSH IV SCH (16:42)
[2021-03-15 16:51] LABS: BUN Creatinine Ratio 16.1 (10-20); Blood Urea Nitrogen 24 mg/dl (7-18); Calcium 8.1 mg/dl (8.5-10.1); Carbon Dioxide 27 mmol/L (21-32); Chloride 100 mmol/L (98-107); Creatinine Clr Calc Pharmacy 57.5 ml/min; Est GFR (African American) 53.1 ml/min; Est GFR (Non-African American) 45.8 ml/min; Ferritin 887.9 ng/ml (8-388); Glucose 225 mg/dl (70-99); Sodium 134 mmol/L (136-145); Troponin I < 0.015 ng/ml (0-0.045)
[2021-03-15 17:36] LABS: Appearance Urine Clear (Clear); Bacteria Urine Automated Negative (Negative); Bilirubin Urine Negative (Negative); Blood Urine 1+ (Negative); Color Urine Dark Yellow; Epithelial Cell Urine Auto >30 /lpf (0-5); Glucose Urine UA 2+ (Negative); Ketones Urine Trace (Negative); Leukocyte Esterase Urine Negative (Negative); Nitrite Urine Negative (Negative); Protein Urine 2+ (Negative); RBC Urine Automated 0-4 /hpf (0-4); Urobilinogen Urine Negative (Negative); pH Urine 5.5 (4.5-7.5)
[2021-03-15 17:49] LABS: Cast Urine Automated >30 /lpf (0-5)
[2021-03-15 17:50] LABS: Renal Epithelial Cells Urine 0-5 /lpf (0-5)
[2021-03-15] MEDS: FAMOTIDINE 10 MG TABLET PO SCH (20:00)
[2021-03-15] MEDS ORDERED: ALUMINUM/MAGNESIUM/SIMETH (MAALOX MAX) 30 ML UDC PO STA (22:44)
[2021-03-15] MEDS ORDERED: ALUMINUM/MAGNESIUM SUSP 30 ML UDC ONE (22:46)
[2021-03-15] MEDS ORDERED: MoRPHine SULFATE 2 MG/ML CARP IV STA (23:01)
[2021-03-15] MEDS ORDERED: MoRPHine SULFATE 2 MG/ML CARP ONE (23:02)
[2021-03-15 23:31] LABS: Base Excess ABG 0.1 mEq/L (-9-1.8); HCO3 ABG 23 mmol/L (19-24); Oxygen Saturation ABG 96.3 % (90-95); PCO2 ABG 32 mmHg (35-46); PO2 ABG 76 mmHg (80-95); pH ABG 7.48 (7.35-7.45)
[2021-03-15 23:33] LABS: Allen Test Pos (Pos)
[2021-03-15 23:52] LABS: Hematocrit (blood only) 43.1 % (42-52); Hemoglobin 14.8 g/dL (14.0-18.0); Mean Corpuscular Hemoglobin 31.1 pg (25-34); Mean Corpuscular Hgb Conc 34.3 g/dL (32-36); Mean Corpuscular Volume 90.5 fL (80-100); Mean Platelet Volume 9.4 fL (7.4-10.4); Platelet Count 267 K/uL (130-400); RDW Coefficient of Variation 13.3 % (11.5-14.5); RDW Standard Deviation 44.4 fL (36.4-46.3); Red Blood Count 4.76 M/uL (4.7-6.1); White Blood Count 9.66 K/uL (4.8-10.8)
[2021-03-15] MEDS: Heparin IV Adult Wt-Based Standard *NO* Bolus Protocol IV SCH (23:52)
[2021-03-16 00:09] LABS: Alanine Aminotransferase 71 U/L (12-78); Albumin Level 2.8 gm/dl (3.4-5.0); Aspartate Aminotransferase 89 U/L (15-37); BUN Creatinine Ratio 16.3 (10-20); Blood Urea Nitrogen 26 mg/dl (7-18); Calcium 8.5 mg/dl (8.5-10.1); Carbon Dioxide 26 mmol/L (21-32); Chloride 98 mmol/L (98-107); Creatinine Clr Calc Pharmacy 54.3 ml/min; Est GFR (African American) 49.5 ml/min; Est GFR (Non-African American) 42.7 ml/min; Glucose 135 mg/dl (70-99); Potassium 3.3 mmol/L (3.5-5.1); Sodium 135 mmol/L (136-145)
[2021-03-16 00:14] LABS: Albumin Globulin Ratio 0.6 (0.9-2); Alkaline Phosphatase 83 U/L (45-117); Bilirubin,Total 0.5 mg/dl (0.2-1); Total Protein 7.8 gm/dl (6.4-8.2); Troponin I < 0.015 ng/ml (0-0.045)
[2021-03-16 00:22] LABS: Basophils # (auto) 0.01 K/uL (0-0.2); Basophils % (auto) 0.1 %; Immature Granulocytes # (auto) 0.01 K/uL (0.00-0.02); Immature Granulocytes % (auto) 0.1 %; Lymphocytes # (auto) 1.51 K/uL (1.2-3.4); Lymphocytes % (auto) 15.6 %; Monocytes # (auto) 0.49 K/uL (0.11-0.59); Monocytes % (auto) 5.1 %; Neutrophils # (auto) 7.64 K/uL (1.4-6.5); Neutrophils % (auto) 79.1 %
[2021-03-16] MEDS: Heparin IV Adult Wt-Based Standard *NO* Bolus Protocol IV SCH (00:22)
[2021-03-16] MEDS: HEPARIN SODIUM/DEXTROSE 25,000 UNITS/500 ML BAG IV SCH ×2 (00:30→15:17)
[2021-03-16] MEDS: POTASSIUM CHLORIDE / WTR 10 MEQ/100 ML PLCT IV SCH ×4 (01:12→05:22)
[2021-03-16 06:50] LABS: Hematocrit (blood only) 39.7 % (42-52); Hemoglobin 13.6 g/dL (14.0-18.0); Mean Corpuscular Hemoglobin 30.6 pg (25-34); Mean Corpuscular Hgb Conc 34.3 g/dL (32-36); Mean Corpuscular Volume 89.2 fL (80-100); Mean Platelet Volume 9.2 fL (7.4-10.4); Platelet Count 228 K/uL (130-400); RDW Coefficient of Variation 13.4 % (11.5-14.5); RDW Standard Deviation 44.5 fL (36.4-46.3); Red Blood Count 4.45 M/uL (4.7-6.1); White Blood Count 9.93 K/uL (4.8-10.8)
[2021-03-16 07:08] LABS: Basophils # (auto) 0.01 K/uL (0-0.2); Basophils % (auto) 0.1 %; Immature Granulocytes # (auto) 0.01 K/uL (0.00-0.02); Immature Granulocytes % (auto) 0.1 %; Lymphocytes # (auto) 1.77 K/uL (1.2-3.4); Lymphocytes % (auto) 17.8 %; Monocytes # (auto) 0.36 K/uL (0.11-0.59); Monocytes % (auto) 3.6 %; Neutrophils # (auto) 7.78 K/uL (1.4-6.5); Neutrophils % (auto) 78.4 %
[2021-03-16 07:14] LABS: Partial Thromboplastin Ratio 1.8
[2021-03-16 07:16] LABS: BUN Creatinine Ratio 16.9 (10-20); Calcium 8.4 mg/dl (8.5-10.1); Creatinine Clr Calc Pharmacy 58.4 ml/min; Est GFR (African American) 56.2 ml/min; Est GFR (Non-African American) 48.5 ml/min; Magnesium 2.4 mg/dl (1.8-2.4); Potassium 3.7 mmol/L (3.5-5.1)
[2021-03-16 07:17] LABS: Partial Thromboplastin Time 48.2 Seconds (21.0-31.0)
--- NOTE | 2021-03-16 07:46 | Hospitalist Progress Note ---
Date of Service March 16, 2021 Assessment & Plan Admission and Anticipated Discharge Date Admission Date: March 15, 2021 Subjective code purple was called as patient became hypoxic and oxygen saturations dropped into 60's.Patient was tachyapneic and tachycardic. Oxygenation improved after starting on bipap. Could not rule out PE as Creatine was 1.5. Started empirically on heparin drip and transferred to [facility].Labbs and abg ok. Results & Data Results & Data ([facility]) Vital Signs (Past 12 Hours) Vital Signs Temp Pulse Pulse Pulse Resp BP Pulse Ox 03/16/21 04:00 37.3 C 96 H 24 142/81 H 92 03/16/21 03:38 95 H 24 92 03/16/21 03:29 51 L 21 99 03/16/21 01:40 37.1 C 108 H 24 129/78 96 03/16/21 00:56 38.4 C H 114 H 24 159/82 H 93 03/16/21 00:52 113 H 03/16/21 00:30 112 H 29 H 94 03/15/21 23:18 129 H 28 H 170/94 H 96 03/15/21 23:06 133 H 33 H 95 03/15/21 23:05 134 H 22 192/93 H 96 03/15/21 23:00 138 H 28 H 222/106 H 73 L 03/15/21 22:55 140 H 38 H 224/108 H 63 L 03/15/21 20:01 36.7 C 95 H 20 135/79 90
[2021-03-16] MEDS: CHOLECALCIFEROL 1,000 UNITS 25 MCG TAB PO SCH (08:20)
[2021-03-16] MEDS: FAMOTIDINE 10 MG TABLET PO SCH ×2 (08:20→20:43)
[2021-03-16] MEDS: amLODIPine BESYLATE 5 MG TAB PO SCH (08:22)
[2021-03-16] MEDS: LOSARTAN POTASSIUM 50 MG TAB PO SCH (08:23)
[2021-03-16] MEDS: ASCORBIC ACID 500 MG TAB PO SCH (08:23)
[2021-03-16] MEDS: FUROSEMIDE 40 MG TAB PO SCH (08:24)
[2021-03-16] MEDS: FOLIC ACID 1 MG TAB PO SCH (08:24)
[2021-03-16] MEDS: MAGNESIUM OXIDE 400 MG TAB PO SCH (08:24)
[2021-03-16] MEDS: TRIAMTERENE/HCTZ 37.5/25MG TAB PO SCH (08:25)
[2021-03-16 09:02] LABS: Estimated Average Glucose 146 mg/dl; Hemoglobin A1C 6.7 % (4.5-5.6)
[2021-03-16] MEDS: dexAMETHasone 6 MG in SYRINGE 0 ML IV SCH (10:05)
[2021-03-16] MEDS: THIAMINE HCL 100 MG TAB PO SCH (10:05)
[2021-03-16] MEDS: REMDESIVIR 100 MG in SODIUM CHLORIDE 0.9% 230 ML IV SCH (12:18)
[2021-03-16 13:39] LABS: Partial Thromboplastin Time 52.1 Seconds (21.0-31.0)
[2021-03-16] MEDS: SODIUM CHLORIDE 0.9% 10ML FLUSH IV SCH (14:01)
--- NOTE | 2021-03-16 15:24 | Pulmonary Consultation ---
Date of Consultation March 16, 2021 Assessment & Plan (1) Pneumonia due to COVID-19 virus: Chest x-ray 03/15/2021 personally reviewed: Portable film, bilateral diffuse opacities appreciated. Costophrenic angles are clear. --Acute hypoxic respiratory failure Secondary to multilobar pneumonia from COVID-19 COVID-19 PCR positive 03/15/2021 CRP 18.1 Procalcitonin 0.38 Continue with O2 supplementation to keep oxygen saturation between 88-92% Currently on high flow. Not the patient is in distress will have to go to CPAP/BiPAP Still in distress intubation with next step Continue with remdesivir Continue with dexamethasone Given the patient is requiring significant high flow and we cannot do CTA it is reasonable to continue with IV heparin Awake proning will be beneficial. --JOHN Patient is not tolerant to CPAP Plan: Continue with incentive spirometry and flutter valve Continue with mucolytic Procalcitonin is 0.38, I think we can discontinue Rocephin but continue with doxycycline for 5 days I would repeat the CRP and BNP right now. If the CRP is elevated we will give Tocilizumab. Patient is +3.5 L since coming to the hospital. He has underlying CKD. Use of diuretic should be thought. Recommend keeping the patient negative balance. Case discussed with Dr. Miramontes Please note the above document was generated using voice recognition software. It may contain grammatical, syntax or spelling errors.Any formal questions or concerns about the content, text or information contained within the body of this dictation should be directly addressed to the provider for clarification. (2) Acute respiratory failure with hypoxia: (3) JOHN (obstructive sleep apnea): (4) CKD (chronic kidney disease), stage III: History of Present Illness Attending Physician: Olivia Miramontes MD History of Present Illness 72-year-old male past medical history of CKD stage III, hypertension, JOHN intolerant to CPAP, GERD, hypothyroidism was admitted to the hospital because of shortness of breath getting progressively worse. Patient has been having issues with cough since last 10 days. He was found to be COVID-19 positive He had got azithromycin and prednisone by the primary care 5 days ago. Overnight patient went from requiring 4 L to 100% FiO2 on high flow Pulmonary were consulted for worsening shortness of breath. At the time of examination patient was on high flow 40 L, 100% Patient was not in any acute distress. He was having dinner. Denies any chest pain. No dizziness, no headache, no nausea, no vomiting. Was able to talk in full sentences. No dysuria, no diarrhea. Social history: Non-smoker Allergies Allergy/AdvReac Type Severity Reaction Status Date / Time peanut Allergy Sneezing Unverified 03/15/21 11:26 Home Medications Medication Instructions Recorded Confirmed Type losartan 50 mg PO DAILY #0 tab 10/17/12 03/15/21 History amlodipine 5 mg PO DAILY 03/15/21 03/15/21 History ascorbic acid (vitamin C) 1,000 mg PO DAILY 03/15/21 03/15/21 History cholecalciferol (vitamin D3) 5,000 units PO DAILY 03/15/21 03/15/21 History cyclobenzaprine 5 mg PO TID PRN 03/15/21 03/15/21 History furosemide 40 mg PO DAILY 03/15/21 03/15/21 History magnesium citrate 160 mg PO DAILY 03/15/21 03/15/21 History triamterene-hydrochlorothiazid 1 tab PO DAILY 03/15/21 03/15/21 History Patient History Medical History CKD (chronic kidney disease), stage III Dyslipidemia GERD (gastroesophageal reflux disease) HTN (hypertension) with goal to be determined JOHN (obstructive sleep apnea) Prediabetes Surgical History S/P skin cancer resection Social History Smoking Status: Never smoker Second Hand Exposure: Yes ( stopped 1990); Do You Dip or Chew Tobacco: No; Hx Alcohol Use: Yes Alcohol type: beer Hx Substance Use: No Preferred Language: Estonian Communication Ability: Effective Laborer Beam House Required: No Beliefs That Will Affect Care: None Current Living Situation: Spouse Other Information That Helps Us Care for You: No Feels Safe at Home: Yes Safety Concerns: Feels Safe At This Time Assistive Devices: None Review of Systems Review of Systems: All systems reviewed & are unremarkable except as noted in HPI & below Physical Exam Physical Exam: Constitutional: No acute distress HEENT: EOMI, PERRLA Respiratory system: Decreased air entry bilaterally, no wheeze, no rhonchi, positive crackles bilaterally CVS: S1-S2 positive, no murmurs or gallops Abdomen: Soft, nontender, nondistended, positive bowel sounds x4, obese Extremities: +2 pulses bilaterally radialis/ dorsalis pedis, no cyanosis, no edema Neuro: Awake alert oriented x3 Psych: Normal mood and affect G/U: No Carvajal Skin: no rashes, warm and dry Lymphatic: no cervical or axillary lymphadenopathy Results & Data Results [facility] ([facility]) Vital Signs (Past 12 Hours) Vital Signs Temp Pulse Pulse Resp BP Pulse Ox 03/16/21 14:37 99 H 22 93 03/16/21 11:29 101 H 23 88 L 03/16/21 11:04 37.6 C H 110 H 24 132/76 90 03/16/21 08:19 107 H 22 93 03/16/21 08:00 37.6 C H 109 H 24 161/88 H 93 03/16/21 07:47 107 H 27 H 92 03/16/21 04:00 37.3 C 96 H 24 142/81 H 92 03/16/21 03:38 95 H 24 92 03/16/21 03:29 51 L 21 99 03/16/21 06:32 03/16/21 06:32 PG Care Time/CCT Total # of Minutes Spent Total Time Spent with Patient: Total time spent is greater than 50% in coordination of care (as documented) at patient's floor/unit and/or counseling patient: Coding Level of Care Code 53591 Initial Inpt Care Lvl 3 Diagnoses Pneumonia due to COVID-19 virus U07.1; J12.82 Acute respiratory failure with hypoxia J96.01 JOHN (obstructive sleep apnea) G47.33 CKD (chronic kidney disease), stage III N18.30
--- NOTE | 2021-03-16 15:39 | Electrocardiogram Report ---
Test Reason : Blood Pressure : / mmHG Vent. Rate : 096 BPM Atrial Rate : 096 BPM P-R Int : 154 ms QRS Dur : 116 ms QT Int : 380 ms P-R-T Axes : 049 -57 039 degrees QTc Int : 480 ms Normal sinus rhythm Left axis deviation Right bundle branch block Abnormal ECG When compared with ECG of 15-MAR-2021 08:50, Premature ventricular complexes are no longer Present Criteria for Inferior infarct are no longer Present Confirmed by Cameron Pineda ([id number]) on 03/16/2021 3:39:29 PM Referred By: REFERRED SELF Confirmed By:Cameron Pineda
[2021-03-16 15:58] LABS: C Reactive Protein 14.9 mg/dl (0-0.29); Ferritin 1456.6 ng/ml (8-388)
[2021-03-16 16:03] LABS: D Dimer 880 ug/L FEU (0-500)
--- NOTE | 2021-03-16 16:21 | Hospitalist Progress Note ---
Date of Service March 16, 2021 Assessment & Plan (1) Pneumonia due to COVID-19 virus: Acute respiratory failure with hypoxia Due to multifocal COVID pneumonia COVID Screen: Positive on March 15, 2021 CXR:Hazy patchy peripheral airspace opacities, right greater than left. This favors a viral pneumonia. Patient started on: Remdesivir, Dexamethasone Developed worsening of hypoxia/respiratory failure, started on IV heparin weight-based protocol for concern of possible thromboembolic event/PE D-dimer elevated which is nonspecific in the setting of acute illness/COVID-[address] of chest could not be done secondary to CKD stage III Neurology consulted Encourage frequent Proning Hypokalemia Replaced continue to follow BMP CKD stage III Monitor renal function while on remdesivir, Avoid nephrotoxic agents as able Hypertension: BP remains borderline low SBP in 100s, Hold home antihypertensive, Monitoring telemetry Obstructive sleep apnea Intolerance to CPAP DVT prophylaxis Lovenox SQ CODE STATUS Full code Disposition Expected discharge home when medically stable. updated over phone: Admission and Anticipated Discharge Date Admission Date: March 15, 2021 Subjective Follow-up visit for acute hypoxemic respiratory failure/COVID 19 pneumonia: Patient reports feeling much better, now off BiPAP, on high flow O2 Able to sit on chair Complains of acid reflux, heartburn, no complaint of chest heaviness or chest tightness, no fever or chills Review of Systems Review of Systems: All systems reviewed & are unremarkable except as noted in Subjective Physical Exam Physical Exam: Physical exam: General: No acute distress, alert awake oriented x3 HEENT: PERRLA, EOMI, Heart: Regular S1-S2, no carotid bruit, no JVD, no lower extremity edema Lungs: Diminished, basilar rales scattered wheeze Abdomen: Soft nontender, no organomegaly Extremity: No cyanosis, no deformity, Neuro: No focal neurological deficit normal speech, normal visual field, Psych: Alert awake oriented x3, normal affect Results & Data Results & Data ([facility]) Vital Signs (Past 12 Hours) Vital Signs Temp Pulse Pulse Resp BP Pulse Ox 03/16/21 14:37 99 H 22 93 03/16/21 11:29 101 H 23 88 L 03/16/21 11:04 37.6 C H 110 H 24 132/76 90 03/16/21 08:19 107 H 22 93 03/16/21 08:00 37.6 C H 109 H 24 161/88 H 93 03/16/21 07:47 107 H 27 H 92
[2021-03-16] MEDS: cefTRIAXone SODIUM 2,000 MG in DEXTROSE 5% 50 ML IV SCH (16:28)
[2021-03-16] MEDS: DOXYCYCLINE HYCLATE 100 MG in DEXTROSE 5% 100 ML IV SCH (16:29)
[2021-03-16] MEDS ORDERED: FUROSEMIDE 40 MG in SYRINGE 0 ML IV ONE (16:33)
[2021-03-16] MEDS ORDERED: CARBOHYDRATES FOR HYPOGLYCEMIA PO PRN (16:34)
[2021-03-16] MEDS ORDERED: GLUCAGON FOR INJ 1 MG VIAL SQ PRN (16:34)
[2021-03-16] MEDS ORDERED: GLUCOSE 10 TABS/TUBE PO PRN (16:34)
[2021-03-16] MEDS ORDERED: GLUCOSE 40% GEL 15 GM TUBE PO PRN (16:34)
[2021-03-16] MEDS ORDERED: DEXTROSE 50% 50 ML SYRINGE IV PRN (16:34)
[2021-03-16] MEDS ORDERED: TOCILIZUMAB 800 MG in 0.9 % SODIUM CHLORIDE 60 ML IV ONE (16:45)
[2021-03-16] MEDS ORDERED: SIMETHICONE 80 MG CHEW PO PRN (18:44)
[2021-03-16] MEDS ORDERED: ALUMINUM/MAGNESIUM/SIMETH (MAALOX MAX) 30 ML UDC PO PRN (18:45)
[2021-03-16] MEDS: guaiFENesin 600 MG TABCR PO SCH (20:43)
[2021-03-16] MEDS: INSULIN ASPART 100 UNITS/ML 3 ML PEN SC SCH (22:42)
[2021-03-17] MEDS: DOXYCYCLINE HYCLATE 100 MG in DEXTROSE 5% 100 ML IV SCH ×2 (03:11→15:22)
[2021-03-17] MEDS: HEPARIN SODIUM/DEXTROSE 25,000 UNITS/500 ML BAG IV SCH (06:20)
[2021-03-17 07:10] LABS: Partial Thromboplastin Ratio 3.2
[2021-03-17 07:18] LABS: BUN Creatinine Ratio 22.4 (10-20); Calcium 8.3 mg/dl (8.5-10.1); Creatinine Clr Calc Pharmacy 68.1 ml/min; Est GFR (Non-African American) 58.7 ml/min; Potassium 3.6 mmol/L (3.5-5.1)
[2021-03-17 07:21] LABS: Partial Thromboplastin Time 85.2 Seconds (21.0-31.0)
[2021-03-17 07:22] LABS: C Reactive Protein 13.5 mg/dl (0-0.29); Ferritin 1617.6 ng/ml (8-388)
[2021-03-17] MEDS: cefTRIAXone SODIUM 2,000 MG in DEXTROSE 5% 50 ML IV SCH (08:21)
[2021-03-17] MEDS: ASCORBIC ACID 500 MG TAB PO SCH (08:28)
[2021-03-17] MEDS: FOLIC ACID 1 MG TAB PO SCH (08:29)
[2021-03-17] MEDS: CHOLECALCIFEROL 1,000 UNITS 25 MCG TAB PO SCH (08:30)
[2021-03-17] MEDS: amLODIPine BESYLATE 5 MG TAB PO SCH (08:31)
[2021-03-17] MEDS: THIAMINE HCL 100 MG TAB PO SCH (08:32)
[2021-03-17] MEDS: FAMOTIDINE 10 MG TABLET PO SCH ×2 (08:33→20:21)
[2021-03-17] MEDS: guaiFENesin 600 MG TABCR PO SCH ×2 (08:33→20:22)
[2021-03-17] MEDS: MAGNESIUM OXIDE 400 MG TAB PO SCH (08:33)
[2021-03-17] MEDS: INSULIN ASPART 100 UNITS/ML 3 ML PEN SC SCH ×4 (09:00→20:28)
[2021-03-17] MEDS: dexAMETHasone 6 MG in SYRINGE 0 ML IV SCH (09:05)
[2021-03-17] MEDS: REMDESIVIR 100 MG in SODIUM CHLORIDE 0.9% 230 ML IV SCH (11:58)
[2021-03-17] MEDS: SODIUM CHLORIDE 0.9% 10ML FLUSH IV SCH (13:19)
--- NOTE | 2021-03-17 14:01 | Pulmonology Progress Note ---
Date of Service March 17, 2021 Assessment & Plan (1) Pneumonia due to COVID-19 virus: Chest x-ray 03/15/2021 personally reviewed: Portable film, bilateral diffuse opacities appreciated. Costophrenic angles are clear. --Acute hypoxic respiratory failure Secondary to multilobar pneumonia from COVID-19 COVID-19 PCR positive 03/15/2021 BNP: 69 S/p Tocilizumab 03/16/2021 CRP 18.1--> 14.9--> 13.5 Procalcitonin 0.38 Continue with O2 supplementation to keep oxygen saturation between 88-92% Currently on high flow. Not the patient is in distress will have to go to CPAP/BiPAP Still in distress intubation with next step Continue with remdesivir Continue with dexamethasone Given the patient is requiring significant high flow and we cannot do CTA it is reasonable to continue with IV heparin Awake proning will be beneficial. --JOHN Patient is not tolerant to CPAP Plan: Continue with mucolytic, incentive spirometry and flutter valve S/p Tocilizumab 03/16/2021 Clinically patient looks good. Try to titrate down FiO2 to keep saturation around 90-92% Case discussed with Dr. Miramontes Please note the above document was generated using voice recognition software. It may contain grammatical, syntax or spelling errors.Any formal questions or concerns about the content, text or information contained within the body of this dictation should be directly addressed to the provider for clarification. (2) Acute respiratory failure with hypoxia: (3) JOHN (obstructive sleep apnea): (4) CKD (chronic kidney disease), stage III: Admission and Anticipated Discharge Date Admission Date: March 15, 2021 Subjective Patient seen and examined at bedside. No acute distress, no adverse events overnight. Patient has been subsequently. At the time of examination he was on 95% FiO2, 35 L high flow saturating 96%. He was having lunch at the time of examination. Denies any chest pain, says that the shortness of breath is improved. No dizziness, no headache. No nausea or vomiting. Fair appetite. Review of Systems Review of Systems: All systems reviewed & are unremarkable except as noted in Subjective Physical Exam Physical Exam: Constitutional: No acute distress HEENT: EOMI, PERRLA Respiratory system: Decreased air entry bilaterally, no wheeze, no rhonchi, positive crackles bilaterally CVS: S1-S2 positive, no murmurs or gallops Abdomen: Soft, nontender, nondistended, positive bowel sounds x4, obese Extremities: +2 pulses bilaterally radialis/ dorsalis pedis, no cyanosis, no edema Neuro: Awake alert oriented x3 Psych: Normal mood and affect G/U: No Carvajal Skin: no rashes, warm and dry Lymphatic: no cervical or axillary lymphadenopathy Results & Data Results & Data ([facility]) Vital Signs (Past 12 Hours) Vital Signs Temp Pulse Pulse Resp BP Pulse Ox 03/17/21 12:58 75 20 94 03/17/21 11:37 36.5 C 79 22 106/57 L 90 03/17/21 11:32 74 20 91 03/17/21 08:00 71 03/17/21 07:58 36.4 C L 74 22 105/69 93 03/17/21 07:26 89 20 91 03/17/21 04:24 35.8 C L 82 20 101/60 94 03/17/21 03:30 71 19 96 03/16/21 06:32 03/17/21 06:23 PG Care Time/CCT Total # of Minutes Spent Total Time Spent with Patient: Total time spent is greater than 50% in coordination of care (as documented) at patient's floor/unit and/or counseling patient: Coding Level of Care Code 99620 Subseq Hosp Care Lvl 3 Diagnoses Pneumonia due to COVID-19 virus U07.1; J12.82 Acute respiratory failure with hypoxia J96.01 JOHN (obstructive sleep apnea) G47.33 CKD (chronic kidney disease), stage III N18.30
--- NOTE | 2021-03-17 15:18 | Electrocardiogram Report ---
Test Reason : Blood Pressure : / mmHG Vent. Rate : 076 BPM Atrial Rate : 076 BPM P-R Int : 158 ms QRS Dur : 120 ms QT Int : 442 ms P-R-T Axes : 035 -26 025 degrees QTc Int : 497 ms Normal sinus rhythm Right bundle branch block Possible Inferior infarct , age undetermined Abnormal ECG When compared with ECG of 16-MAR-2021 04:31, No significant change was found Confirmed by Derrick Navarro ([id number]) on 03/17/2021 3:17:43 PM Referred By: REFERRED SELF Confirmed By:Derrick Navarro
[2021-03-17 15:20] LABS: Partial Thromboplastin Ratio 2.2
[2021-03-17 15:33] LABS: Partial Thromboplastin Time 57.2 Seconds (21.0-31.0)
--- NOTE | 2021-03-17 16:57 | Hospitalist Progress Note ---
Date of Service March 17, 2021 Assessment & Plan (1) Pneumonia due to COVID-19 virus: Acute respiratory failure with hypoxia Due to multifocal COVID pneumonia COVID Screen: Positive on March 15, 2021 CXR:Hazy patchy peripheral airspace opacities, right greater than left. This favors a viral pneumonia. Patient started on: Remdesivir, Dexamethasone given Tocilizumab on IV heparin weight-based protocol for concern of possible thromboembolic event/PE D-dimer elevated which is nonspecific in the setting of acute illness/COVID-[address] of chest could not be done secondary to CKD stage III appreciate input from Pulmonology Encourage frequent Proning Hypokalemia Replaced continue to follow BMP CKD stage III Monitor renal function while on remdesivir, Avoid nephrotoxic agents as able Hypertension: BP remains borderline low SBP in 100s, Hold home antihypertensive, Monitoring telemetry Obstructive sleep apnea Intolerance to CPAP DVT prophylaxis IV heparin , CODE STATUS Full code Disposition Expected discharge home when medically stable. updated over phone: Admission and Anticipated Discharge Date Admission Date: March 15, 2021 Subjective Follow-up visit for acute hypoxemic respiratory failure/COVID 19 pneumonia: sitting up on chair , on HIgh Flow at rest spo2 remains in low 90%'s desaturates to 86% while talking , recovers quickly no cough , no fever or chills Review of Systems Review of Systems: All systems reviewed & are unremarkable except as noted in Subjective Physical Exam Physical Exam: Physical exam: General: No acute distress, alert awake oriented x3 HEENT: PERRLA, EOMI, Heart: Regular S1-S2, no carotid bruit, no JVD, no lower extremity edema Lungs: Diminished, basilar rales scattered wheeze Abdomen: Soft nontender, no organomegaly Extremity: No cyanosis, no deformity, Neuro: No focal neurological deficit normal speech, normal visual field, Psych: Alert awake oriented x3, normal affect Results & Data Results & Data ([facility]) Vital Signs (Past 12 Hours) Vital Signs Temp Pulse Pulse Resp BP Pulse Ox 03/17/21 15:37 36.5 C 76 20 112/73 95 03/17/21 15:21 74 18 94 03/17/21 12:58 75 20 94 03/17/21 11:37 36.5 C 79 22 106/57 L 90 03/17/21 11:32 74 20 91 03/17/21 08:00 71 03/17/21 07:58 36.4 C L 74 22 105/69 93 03/17/21 07:26 89 20 91
[2021-03-17] MEDS: ALBUTEROL HFA 8 GM INHALER INH PRN (20:51)
[2021-03-18] MEDS: HEPARIN SODIUM/DEXTROSE 25,000 UNITS/500 ML BAG IV SCH (01:04)
[2021-03-18] MEDS: DOXYCYCLINE HYCLATE 100 MG in DEXTROSE 5% 100 ML IV SCH ×2 (02:36→14:14)
[2021-03-18 07:06] LABS: Partial Thromboplastin Ratio 2.5
[2021-03-18 07:20] LABS: Partial Thromboplastin Time 64.6 Seconds (21.0-31.0)
[2021-03-18 07:23] LABS: BUN Creatinine Ratio 22.3 (10-20); C Reactive Protein 7.98 mg/dl (0-0.29); Calcium 8.2 mg/dl (8.5-10.1); Creatinine Clr Calc Pharmacy 82.8 ml/min; Est GFR (African American) 82.4 ml/min; Est GFR (Non-African American) 71.1 ml/min; Potassium 3.5 mmol/L (3.5-5.1)
[2021-03-18 07:28] LABS: Ferritin 1571.6 ng/ml (8-388)
[2021-03-18] MEDS: INSULIN ASPART 100 UNITS/ML 3 ML PEN SC SCH ×4 (08:00→21:22)
[2021-03-18] MEDS: guaiFENesin 600 MG TABCR PO SCH ×2 (08:10→20:14)
[2021-03-18] MEDS: FAMOTIDINE 10 MG TABLET PO SCH ×2 (08:11→20:14)
[2021-03-18] MEDS: CHOLECALCIFEROL 1,000 UNITS 25 MCG TAB PO SCH (08:11)
[2021-03-18] MEDS: FOLIC ACID 1 MG TAB PO SCH (08:12)
[2021-03-18] MEDS: ASCORBIC ACID 500 MG TAB PO SCH (08:13)
[2021-03-18] MEDS: amLODIPine BESYLATE 5 MG TAB PO SCH (08:13)
[2021-03-18] MEDS: MAGNESIUM OXIDE 400 MG TAB PO SCH (08:14)
[2021-03-18] MEDS: THIAMINE HCL 100 MG TAB PO SCH (08:15)
[2021-03-18] MEDS: cefTRIAXone SODIUM 2,000 MG in DEXTROSE 5% 50 ML IV SCH (08:33)
[2021-03-18] MEDS: dexAMETHasone 6 MG in SYRINGE 0 ML IV SCH (08:33)
[2021-03-18] MEDS: ENOXAPARIN INJ 120 MG/0.8 ML SYR SQ SCH ×2 (09:28→20:14)
[2021-03-18] MEDS: REMDESIVIR 100 MG in SODIUM CHLORIDE 0.9% 230 ML IV SCH (12:53)
--- NOTE | 2021-03-18 13:14 | Pulmonology Progress Note ---
Date of Service March 18, 2021 Assessment & Plan (1) Pneumonia due to COVID-19 virus: Chest x-ray 03/15/2021 personally reviewed: Portable film, bilateral diffuse opacities appreciated. Costophrenic angles are clear. --Acute hypoxic respiratory failure Secondary to multilobar pneumonia from COVID-19 COVID-19 PCR positive 03/15/2021 BNP: 69 S/p Tocilizumab 03/16/2021 CRP 18.1--> 14.9--> 13.5 --> 7.98 Procalcitonin 0.38 Continue with O2 supplementation to keep oxygen saturation between 88-92% Currently on high flow. Not the patient is in distress will have to go to CPAP/BiPAP Still in distress intubation with next step Continue with remdesivir Continue with dexamethasone Given the patient is requiring significant high flow and we cannot do CTA it is reasonable to continue with therapeutic Lovenox Awake proning will be beneficial. --JOHN Patient is not tolerant to CPAP Plan: Patient is positive for liters since coming to the hospital. Resume Lasix today. S/p Tocilizumab 03/16/2021 Try to titrate down FiO2 to keep saturation around 90-92% Case discussed with Dr. Miramontes Please note the above document was generated using voice recognition software. It may contain grammatical, syntax or spelling errors.Any formal questions or concerns about the content, text or information contained within the body of this dictation should be directly addressed to the provider for clarification. (2) Acute respiratory failure with hypoxia: (3) JOHN (obstructive sleep apnea): (4) CKD (chronic kidney disease), stage III: Admission and Anticipated Discharge Date Admission Date: March 15, 2021 Subjective Patient seen from the glass window of the door. He was saturating 92% on 35 L, 90% FiO2 Not in any acute distress. He was having his lunch. Case was discussed with log roper of Systems Review of Systems: Other Physical Exam Physical Exam: Patient not examined due to coronavirus restrictions and attempts to minimize exposure to staff and consider PPE. Please refer to the hospitalist exam for complete details. Results & Data Results & Data ([facility]) Vital Signs (Past 12 Hours) Vital Signs Temp Pulse Pulse Resp BP Pulse Ox 03/18/21 11:15 88 22 89 L 03/18/21 04:20 36.3 C L 68 20 132/70 97 03/18/21 03:32 67 18 95 03/16/21 06:32 03/18/21 06:18 PG Care Time/CCT Total # of Minutes Spent Total Time Spent with Patient: Total time spent is greater than 50% in coordination of care (as documented) at patient's floor/unit and/or counseling patient: Coding Level of Care Code 00117 Subseq Hosp Care Lvl 2 Diagnoses Pneumonia due to COVID-19 virus U07.1; J12.82 Acute respiratory failure with hypoxia J96.01 JOHN (obstructive sleep apnea) G47.33 CKD (chronic kidney disease), stage III N18.30
[2021-03-18] MEDS: SODIUM CHLORIDE 0.9% 10ML FLUSH IV SCH (14:15)
--- NOTE | 2021-03-18 16:52 | Hospitalist Progress Note ---
Date of Service March 18, 2021 Assessment & Plan (1) Pneumonia due to COVID-19 virus: Acute respiratory failure with hypoxia PT status has been stable Due to multifocal COVID pneumonia COVID Screen: Positive on March 15, 2021 CXR:Hazy patchy peripheral airspace opacities, right greater than left. This favors a viral pneumonia. Patient started on: Remdesivir, Dexamethasone given Tocilizumab was IV heparin weight-based protocol for concern of possible thromboembolic event/PE Change to therapeutic dose of IV Lovenox D-dimer elevated which is nonspecific in the setting of acute illness/COVID-[address] of chest could not be done secondary to CKD stage III appreciate input from Pulmonology Encourage frequent Proning Hypokalemia Replaced continue to follow BMP CKD stage III Monitor renal function while on remdesivir, Avoid nephrotoxic agents as able Hypertension: BP remains borderline low SBP in 100s, Hold home antihypertensive, Monitoring telemetry Obstructive sleep apnea Intolerance to CPAP DVT prophylaxis Hepatic dose of Lovenox CODE STATUS Full code Disposition Expected discharge home when medically stable. Admission and Anticipated Discharge Date Admission Date: March 15, 2021 Subjective Follow-up visit for acute hypoxemic respiratory failure/COVID 19 pneumonia: Patient reports that he is feeling much better, on high flow O2, SPO2 improved to 90%, Does not have any pleuritic chest discomfort, no chest heaviness, no fever or chills. No GI or symptoms Review of Systems Review of Systems: All systems reviewed & are unremarkable except as noted in Subjective Physical Exam Physical Exam: Physical exam: General: No acute distress, alert awake oriented x3 HEENT: PERRLA, EOMI, Heart: Regular S1-S2, no carotid bruit, no JVD, no lower extremity edema Lungs: Diminished, basilar rales scattered wheeze Abdomen: Soft nontender, no organomegaly Extremity: No cyanosis, no deformity, Neuro: No focal neurological deficit normal speech, normal visual field, Psych: Alert awake oriented x3, normal affect Results & Data Results & Data ([facility]) Vital Signs (Past 12 Hours) Vital Signs Pulse Pulse Resp Pulse Ox 03/18/21 14:35 88 21 90 03/18/21 11:15 88 22 89 L 03/18/21 08:00 75
[2021-03-18] MEDS: ALBUTEROL HFA 8 GM INHALER INH PRN (22:13)
[2021-03-19] MEDS: DOXYCYCLINE HYCLATE 100 MG in DEXTROSE 5% 100 ML IV SCH (03:15)
[2021-03-19 07:16] LABS: BUN Creatinine Ratio 24.5 (10-20); Calcium 8.3 mg/dl (8.5-10.1); Est GFR (African American) 76.2 ml/min; Est GFR (Non-African American) 65.7 ml/min; Potassium 3.7 mmol/L (3.5-5.1)
[2021-03-19 07:20] LABS: C Reactive Protein 4.15 mg/dl (0-0.29); Ferritin 1109.9 ng/ml (8-388)
[2021-03-19] MEDS: dexAMETHasone 6 MG in SYRINGE 0 ML IV SCH (08:49)
[2021-03-19] MEDS: guaiFENesin 600 MG TABCR PO SCH ×2 (08:49→21:12)
[2021-03-19] MEDS: FUROSEMIDE 40 MG TAB PO SCH (08:49)
[2021-03-19] MEDS: FAMOTIDINE 10 MG TABLET PO SCH ×2 (08:49→21:12)
[2021-03-19] MEDS: CHOLECALCIFEROL 1,000 UNITS 25 MCG TAB PO SCH (08:50)
[2021-03-19] MEDS: ASCORBIC ACID 500 MG TAB PO SCH (08:50)
[2021-03-19] MEDS: MAGNESIUM OXIDE 400 MG TAB PO SCH (08:50)
[2021-03-19] MEDS: FOLIC ACID 1 MG TAB PO SCH (08:50)
[2021-03-19] MEDS: amLODIPine BESYLATE 5 MG TAB PO SCH (08:51)
[2021-03-19] MEDS: THIAMINE HCL 100 MG TAB PO SCH (08:51)
[2021-03-19] MEDS: ENOXAPARIN INJ 120 MG/0.8 ML SYR SQ SCH ×2 (08:51→21:12)
[2021-03-19] MEDS: cefTRIAXone SODIUM 2,000 MG in DEXTROSE 5% 50 ML IV SCH (09:31)
[2021-03-19] MEDS: INSULIN ASPART 100 UNITS/ML 3 ML PEN SC SCH ×4 (09:54→21:23)
--- NOTE | 2021-03-19 11:39 | Hospitalist Progress Note ---
Date of Service March 19, 2021 Assessment & Plan (1) Pneumonia due to COVID-19 virus: Acute respiratory failure with hypoxia on High flow 02 will keep on higher Fi02 to keep spo2 94 % for next 2 days , then gradually titrate down as tolerated Pt had been experiencing desaturation with titration of Fio2 , presented with acute hypoxemic resp failure Due to multifocal COVID 19 pneumonia COVID Screen: Positive on March 15, 2021 CXR:Hazy patchy peripheral airspace opacities, right greater than left. This favors a viral pneumonia. Patient started on: Remdesivir, Dexamethasone given Tocilizumab on 03/16/21 was IV heparin weight-based protocol for concern of possible thromboembolic event/PE Change to therapeutic dose of IV Lovenox D-dimer elevated which is nonspecific in the setting of acute illness/COVID-[address] of chest could not be done secondary to CKD stage III appreciate input from Pulmonology Encourage frequent Proning Hypokalemia Replaced continue to follow BMP CKD stage III Monitor renal function while on remdesivir, Avoid nephrotoxic agents as able Hypertension: BP remains borderline low SBP in 100s, Hold home antihypertensive, Obstructive sleep apnea CPAP at night ordered DVT prophylaxis theraputic dose of Lovenox CODE STATUS Full code Disposition Expected discharge home when medically stable. Admission and Anticipated Discharge Date Admission Date: March 15, 2021 Subjective Follow-up visit for acute hypoxemic respiratory failure/COVID 19 pneumonia: requring high flow 02 currently Fio2 85 % feeling much better , has minimum SOB , spo2 remains 94% , no desaturation noted while talking pt report having hard time breathing at night while on high flow will order for continued CPAP at night no fever or chills has productive cough , ordered for sputum culture on Doxycycline already Review of Systems Review of Systems: All systems reviewed & are unremarkable except as noted in Subjective Physical Exam Physical Exam: Physical exam: General: No acute distress, alert awake oriented x3 HEENT: PERRLA, EOMI, Heart: Regular S1-S2, no carotid bruit, no JVD, no lower extremity edema Lungs: Diminished, basilar rales scattered wheeze Abdomen: Soft nontender, no organomegaly Extremity: No cyanosis, no deformity, Neuro: No focal neurological deficit normal speech, normal visual field, Psych: Alert awake oriented x3, normal affect Results & Data Results & Data ([facility]) Vital Signs (Past 12 Hours) Vital Signs Temp Pulse Pulse Resp BP Pulse Ox 03/19/21 08:00 74 03/19/21 07:48 37.2 C 68 19 130/68 95 03/19/21 07:40 67 20 94 03/19/21 04:18 36.7 C 71 20 118/72 98 03/19/21 02:59 76 23 91 03/18/21 23:59 76 03/18/21 23:41 36.5 C 77 20 129/67 90
[2021-03-19] MEDS: ALBUTEROL HFA 8 GM INHALER INH PRN (11:44)
[2021-03-19] MEDS: REMDESIVIR 100 MG in SODIUM CHLORIDE 0.9% 230 ML IV SCH (12:06)
[2021-03-19] MEDS: SODIUM CHLORIDE 0.9% 10ML FLUSH IV SCH (13:34)
--- NOTE | 2021-03-19 13:58 | Pulmonology Progress Note ---
Date of Service March 19, 2021 Assessment & Plan (1) Pneumonia due to COVID-19 virus: 71-year-old male with a history of GERD, JOHN and CKD stage III presenting to the hospital due to COVID-19 pneumonia. COVID-19: Hypoxia slowly improving. Maintain saturations of 92 to 94% with high flow oxygen. Continue flutter valve and incentive spirometry. Continue as tolerated activity out of the bed. Continue usual COVID-19 therapy including 10 days of Decadron. He did receive tocilizumab on 03/16/2021. His CRP has been trending down. No need for further CRP trend. He is currently on Rocephin and doxycycline. I doubt that there is a bacterial pneumonia at this time. Procalcitonin can be elevated due to the COVID-19 illness itself. TREVIN could also cause his procalcitonin to be elevated. He is afebrile and without leukocytosis. Would recommend discontinuation of antibiotics. I would recommend switching the patient to prophylactic doses of anticoagulation rather than therapeutic doses especially as his hypoxia is improving. Pulmonary will follow from periphery. Please call with questions. Thank you for the consultation. (2) Acute respiratory failure with hypoxia: (3) JOHN (obstructive sleep apnea): (4) CKD (chronic kidney disease), stage III: Admission and Anticipated Discharge Date Admission Date: March 15, 2021 Subjective 71-year-old male seen and examined at bedside. He is standing up and ambulating around the room. He had trouble sleeping last night. Overall, he does feel better. He is still coughing up sputum that is clear. He denies any significant chest pain, fevers or chills at this time. Review of Systems Review of Systems: All systems reviewed & are unremarkable except as noted in HPI & below Physical Exam Physical Exam: Constitutional: No acute distress HEENT: EOMI, PERRLA Respiratory system: Decreased air entry bilaterally. No use of accessory muscles. No wheeze. CVS: S1-S2 positive, no murmurs or gallops Abdomen: Soft, nontender, nondistended, positive bowel sounds x4, obese Extremities: +2 pulses bilaterally radialis/ dorsalis pedis, no cyanosis, no edema Neuro: Awake alert oriented x3 Psych: Normal mood and affect G/U: No [place] Skin: no rashes, warm and dry Lymphatic: no cervical or axillary lymphadenopathy Results & Data Results & Data ([facility]) Vital Signs (Past 12 Hours) Vital Signs Temp Pulse Pulse Resp BP Pulse Ox Pulse Ox 03/19/21 12:03 98.1 F 70 20 119/69 93 03/19/21 11:45 73 18 92 03/19/21 08:00 74 92 03/19/21 07:48 99.0 F 68 19 130/68 95 03/19/21 07:40 67 20 94 03/19/21 04:18 98.1 F 71 20 118/72 98 03/19/21 02:59 76 23 91 Vital signs, labs and imaging reviewed. PG Care Time/CCT Total # of Minutes Spent Total Time Spent with Patient: Total time spent is greater than 50% in coordination of care (as documented) at patient's floor/unit and/or counseling patient: Coding Level of Care Code 44565 Subseq Hosp Care Lvl 3 Diagnoses Pneumonia due to COVID-19 virus U07.1; J12.82 Acute respiratory failure with hypoxia J96.01 JOHN (obstructive sleep apnea) G47.33 CKD (chronic kidney disease), stage III N18.30
[2021-03-19] MEDS: DOXYCYCLINE HYCLATE 100 MG CAP PO SCH (21:12)
[2021-03-20 07:20] LABS: BUN Creatinine Ratio 23.8 (10-20); C Reactive Protein 2.41 mg/dl (0-0.29); Creatinine Clr Calc Pharmacy 76.6 ml/min; Est GFR (African American) 74.6 ml/min; Est GFR (Non-African American) 64.3 ml/min
[2021-03-20 07:23] LABS: Ferritin 927.3 ng/ml (8-388)
[2021-03-20] MEDS: dexAMETHasone 6 MG in SYRINGE 0 ML IV SCH (08:04)
[2021-03-20] MEDS: amLODIPine BESYLATE 5 MG TAB PO SCH (08:09)
[2021-03-20] MEDS: ASCORBIC ACID 500 MG TAB PO SCH (08:09)
[2021-03-20] MEDS: FUROSEMIDE 40 MG TAB PO SCH (08:09)
[2021-03-20] MEDS: guaiFENesin 600 MG TABCR PO SCH ×2 (08:10→21:20)
[2021-03-20] MEDS: THIAMINE HCL 100 MG TAB PO SCH (08:10)
[2021-03-20] MEDS: FOLIC ACID 1 MG TAB PO SCH (08:10)
[2021-03-20] MEDS: DOXYCYCLINE HYCLATE 100 MG CAP PO SCH (08:11)
[2021-03-20] MEDS: CHOLECALCIFEROL 1,000 UNITS 25 MCG TAB PO SCH (08:11)
[2021-03-20] MEDS: FAMOTIDINE 10 MG TABLET PO SCH ×2 (08:11→21:20)
[2021-03-20] MEDS: ENOXAPARIN INJ 120 MG/0.8 ML SYR SQ SCH ×2 (08:11→21:21)
[2021-03-20] MEDS: cefTRIAXone SODIUM 2,000 MG in DEXTROSE 5% 50 ML IV SCH (08:12)
[2021-03-20] MEDS: INSULIN ASPART 100 UNITS/ML 3 ML PEN SC SCH ×4 (08:55→22:15)
[2021-03-20] MEDS ORDERED: MAGNESIUM OXIDE 400 MG TAB PO SCH (09:00)
[2021-03-20] MEDS: ALBUTEROL HFA 8 GM INHALER INH PRN ×2 (11:05→15:15)
[2021-03-20] MEDS: MAGNESIUM OXIDE 400 MG TAB PO SCH (12:14)
--- NOTE | 2021-03-20 17:04 | Hospitalist Progress Note ---
Date of Service March 20, 2021 Assessment & Plan (1) Pneumonia due to COVID-19 virus: Acute respiratory failure with hypoxia on High flow 02 will keep on higher Fi02 to keep spo2 94 % for next 2 days , then gradually titrate down as tolerated Pt had been experiencing desaturation with titration of Fio2 , presented with acute hypoxemic resp failure Due to multifocal COVID 19 pneumonia COVID Screen: Positive on March 15, 2021 CXR:Hazy patchy peripheral airspace opacities, right greater than left. This favors a viral pneumonia. continues to have productive cough was on Rocephin and doxy , with not improvment of symptoms no fever or chills abx changed to PO Augmentin Patient started on: Remdesivir, Dexamethasone given Tocilizumab on 03/16/21 was on IV heparin weight-based protocol for concern of possible thromboembolic event/PE Change to therapeutic dose of IV Lovenox D-dimer elevated which is nonspecific in the setting of acute illness/COVID-[address] of chest could not be done secondary to CKD stage III appreciate input from Pulmonology Encourage frequent Proning Hypokalemia Replaced continue to follow BMP reports of loose stool ordered probiotic check stool for c diff CKD stage III Monitor renal function Avoid nephrotoxic agents as able Hypertension: resumed home BP meds Obstructive sleep apnea CPAP at night ordered DVT prophylaxis theraputic dose of Lovenox CODE STATUS Full code Disposition Expected discharge home when medically stable. Admission and Anticipated Discharge Date Admission Date: March 15, 2021 Subjective Follow-up visit for acute hypoxemic respiratory failure/COVID 19 pneumonia: requring high flow 02 currently Fio2 88 % feeling much better , has minimum SOB , spo2 remains 94% , no desaturation noted while talking utiizing CPAP at night no fever or chills continues to have productive cough with yellow taryn sputum no chest pain during coughing Physical Exam Physical Exam: Physical exam: General: No acute distress, alert awake oriented x3 HEENT: PERRLA, EOMI, Heart: Regular S1-S2, no carotid bruit, no JVD, no lower extremity edema Lungs: Diminished, basilar rales scattered wheeze Abdomen: Soft nontender, no organomegaly Extremity: No cyanosis, no deformity, Neuro: No focal neurological deficit normal speech, normal visual field, Psych: Alert awake oriented x3, normal affect Results & Data Results & Data ([facility]) Vital Signs (Past 12 Hours) Vital Signs Temp Pulse Pulse Resp BP Pulse Ox Pulse Ox 03/20/21 16:56 36.6 C 74 18 132/73 92 03/20/21 15:20 75 03/20/21 15:15 67 21 96 03/20/21 12:03 36.4 C L 69 20 120/70 93 03/20/21 11:06 75 20 92 03/20/21 10:56 69 20 89 L 03/20/21 08:07 36.4 C L 77 20 115/63 84 L 03/20/21 08:00 69 86 L 03/20/21 07:21 61 18 92
[2021-03-20] MEDS: AMOXICILLIN/CLAVULANATE 875 MG TAB PO SCH (18:20)
[2021-03-20] MEDS: ADVANCED PROBIOTIC 1250 MG CAPSULE PO SCH (18:20)
[2021-03-21 07:07] LABS: C Reactive Protein 1.51 mg/dl (0-0.29); Ferritin 803.1 ng/ml (8-388)
[2021-03-21] MEDS: ALBUTEROL HFA 8 GM INHALER INH PRN (07:40)
[2021-03-21] MEDS: ADVANCED PROBIOTIC 1250 MG CAPSULE PO SCH (08:54)
[2021-03-21] MEDS: AMOXICILLIN/CLAVULANATE 875 MG TAB PO SCH ×2 (08:54→17:37)
[2021-03-21] MEDS: amLODIPine BESYLATE 5 MG TAB PO SCH (08:55)
[2021-03-21] MEDS: dexAMETHasone 6 MG in SYRINGE 0 ML IV SCH (08:55)
[2021-03-21] MEDS: FUROSEMIDE 40 MG TAB PO SCH (08:55)
[2021-03-21] MEDS: FOLIC ACID 1 MG TAB PO SCH (08:55)
[2021-03-21] MEDS: CHOLECALCIFEROL 1,000 UNITS 25 MCG TAB PO SCH (08:55)
[2021-03-21] MEDS: ASCORBIC ACID 500 MG TAB PO SCH (08:55)
[2021-03-21] MEDS: THIAMINE HCL 100 MG TAB PO SCH (08:55)
[2021-03-21] MEDS: LOSARTAN POTASSIUM 50 MG TAB PO SCH (08:56)
[2021-03-21] MEDS: guaiFENesin 600 MG TABCR PO SCH ×2 (08:56→21:51)
[2021-03-21] MEDS: ENOXAPARIN INJ 120 MG/0.8 ML SYR SQ SCH ×2 (08:57→21:49)
[2021-03-21] MEDS: TRIAMTERENE/HCTZ 37.5/25MG TAB PO SCH (08:57)
[2021-03-21] MEDS: FAMOTIDINE 10 MG TABLET PO SCH ×2 (08:57→21:47)
[2021-03-21] MEDS: INSULIN ASPART 100 UNITS/ML 3 ML PEN SC SCH ×4 (09:10→21:29)
[2021-03-21] MEDS: MAGNESIUM OXIDE 400 MG TAB PO SCH (12:42)
--- NOTE | 2021-03-21 16:58 | Hospitalist Progress Note ---
Date of Service March 21, 2021 Assessment & Plan (1) Pneumonia due to COVID-19 virus: Acute respiratory failure with hypoxia COVID Pneumonia Remains on high flow nasal cannula. Will continue with Decadron. Remains afebrile. WBC is within normal limit. COVID Screen: Positive on March 15, 2021 CXR:Hazy patchy peripheral airspace opacities, right greater than left. This favors a viral pneumonia. Currently remains on Augmentin. given Tocilizumab on 03/16/21 was on IV heparin weight-based protocol for concern of possible thromboembolic event/PE Change to therapeutic dose of IV Lovenox D-dimer elevated which is nonspecific in the setting of acute illness/COVID-[address] of chest could not be done secondary to CKD stage III appreciate input from Pulmonology Encourage frequent Proning Hypokalemia - resolved CKD stage III Monitor renal function Avoid nephrotoxic agents as able Hypertension: resumed home BP meds Obstructive sleep apnea CPAP at night ordered DVT prophylaxis theraputic dose of Lovenox CODE STATUS Full code Disposition Expected discharge home when medically stable. Admission and Anticipated Discharge Date Admission Date: March 15, 2021 Subjective Patient is doing okay this morning. Currently on 3 L of high flow nasal cannula. Reports that shortness of breath is improved. Does have productive cough. Denies any fever chills or diaphoresis. Denies any chest pain, abdominal pain, diarrhea or dysuria. Appetite has been good Review of Systems Review of Systems: All systems reviewed & are unremarkable except as noted in HPI & below Physical Exam Physical Exam: General: A&Ox3 HENT: NCAT, MMM, EOMI Eyes: PERRLA Neck: Supple, normal range of motion CVS: normal rate and rhythm Resp: b/l coarse breath sounds Abdomen: Soft, ND/NT, +BS Extremities: No c/c/e Neuro: face symmetric, strength grossly equal, no focal deficit Skin: warm and dry, no rashes/lesions/errythema MSK: normal ROM, no joint swelling/erythema Results & Data Results & Data ([facility]) Vital Signs (Past 12 Hours) Vital Signs Temp Pulse Resp BP Pulse Ox 03/21/21 15:16 69 17 94 03/21/21 11:23 76 17 93 03/21/21 08:50 36.5 C 69 20 132/75 93 03/21/21 07:42 73 18 91
[2021-03-22 06:32] LABS: Basophils # (auto) 0.01 K/uL (0-0.2); Basophils % (auto) 0.1 %; Eosinophils # (auto) 0.21 K/uL (0-0.5); Eosinophils % (auto) 2.1 %; Hemoglobin 13.8 g/dL (14.0-18.0); Immature Granulocytes # (auto) 0.17 K/uL (0.00-0.02); Immature Granulocytes % (auto) 1.7 %; Lymphocytes # (auto) 1.38 K/uL (1.2-3.4); Lymphocytes % (auto) 13.6 %; Mean Corpuscular Hgb Conc 33.7 g/dL (32-36); Mean Corpuscular Volume 89.1 fL (80-100); Mean Platelet Volume 8.9 fL (7.4-10.4); Monocytes # (auto) 0.49 K/uL (0.11-0.59); Monocytes % (auto) 4.8 %; Neutrophils # (auto) 7.86 K/uL (1.4-6.5); Neutrophils % (auto) 77.7 %; Platelet Count 439 K/uL (130-400); RDW Coefficient of Variation 13.4 % (11.5-14.5); RDW Standard Deviation 43.3 fL (36.4-46.3); White Blood Count 10.12 K/uL (4.8-10.8)
[2021-03-22 07:05] LABS: BUN Creatinine Ratio 20.5 (10-20); Calcium 8.2 mg/dl (8.5-10.1); Creatinine Clr Calc Pharmacy 68.7 ml/min; Est GFR (African American) 65.4 ml/min; Est GFR (Non-African American) 56.5 ml/min; Potassium 3.6 mmol/L (3.5-5.1)
[2021-03-22 07:09] LABS: C Reactive Protein 0.92 mg/dl (0-0.29); Ferritin 710.9 ng/ml (8-388)
[2021-03-22] MEDS: amLODIPine BESYLATE 5 MG TAB PO SCH (09:33)
[2021-03-22] MEDS: AMOXICILLIN/CLAVULANATE 875 MG TAB PO SCH (09:33)
[2021-03-22] MEDS: dexAMETHasone 6 MG in SYRINGE 0 ML IV SCH (09:34)
[2021-03-22] MEDS: CHOLECALCIFEROL 1,000 UNITS 25 MCG TAB PO SCH (09:34)
[2021-03-22] MEDS: ENOXAPARIN INJ 120 MG/0.8 ML SYR SQ SCH ×2 (09:35→21:16)
[2021-03-22] MEDS: FUROSEMIDE 40 MG TAB PO SCH (09:37)
[2021-03-22] MEDS: guaiFENesin 600 MG TABCR PO SCH ×2 (09:37→21:16)
[2021-03-22] MEDS: FOLIC ACID 1 MG TAB PO SCH (09:37)
[2021-03-22] MEDS: THIAMINE HCL 100 MG TAB PO SCH (09:38)
[2021-03-22] MEDS: ADVANCED PROBIOTIC 1250 MG CAPSULE PO SCH (09:38)
[2021-03-22] MEDS: TRIAMTERENE/HCTZ 37.5/25MG TAB PO SCH (09:38)
[2021-03-22] MEDS: LOSARTAN POTASSIUM 50 MG TAB PO SCH (09:38)
[2021-03-22] MEDS: ASCORBIC ACID 500 MG TAB PO SCH (09:39)
[2021-03-22] MEDS: FAMOTIDINE 10 MG TABLET PO SCH ×2 (09:40→21:16)
[2021-03-22] MEDS: INSULIN ASPART 100 UNITS/ML 3 ML PEN SC SCH ×4 (10:08→20:57)
[2021-03-22] MEDS: MAGNESIUM OXIDE 400 MG TAB PO SCH (12:38)
--- NOTE | 2021-03-22 15:32 | Hospitalist Progress Note ---
Date of Service March 22, 2021 Assessment & Plan (1) Pneumonia due to COVID-19 virus: Acute respiratory failure with hypoxia COVID Pneumonia Currently weaned down to 7 L of nasal cannula. Continue with Decadron. Completed course of remdesivir. Remains afebrile. WBC is within normal limit. No indication for antibiotics at this time. Will discontinue Augmentin. COVID Screen: Positive on March 15, 2021 CXR:Hazy patchy peripheral airspace opacities, right greater than left. This favors a viral pneumonia. given Tocilizumab on 03/16/21 was on IV heparin weight-based protocol for concern of possible thromboembolic event/PE Change to therapeutic dose of IV Lovenox D-dimer elevated which is nonspecific in the setting of acute illness/COVID-[address] of chest could not be done secondary to CKD stage III appreciate input from Pulmonology Encourage frequent Proning Hypokalemia - resolved CKD stage III Monitor renal function Avoid nephrotoxic agents as able Hypertension: resumed home BP meds Obstructive sleep apnea CPAP at night ordered DVT prophylaxis theraputic dose of Lovenox CODE STATUS Full code Disposition Expected discharge home when medically stable. Admission and Anticipated Discharge Date Admission Date: March 15, 2021 Subjective Patient is doing okay this morning. Currently down to 7 L of nasal cannula. Reports shortness of breath is improved. Does have minimal productive cough. Rest of the review of system is negative. Review of Systems Review of Systems: All systems reviewed & are unremarkable except as noted in HPI & below Physical Exam Physical Exam: General: A&Ox3 HENT: NCAT, MMM, EOMI Eyes: PERRLA Neck: Supple, normal range of motion CVS: normal rate and rhythm Resp: b/l coarse breath sounds Abdomen: Soft, ND/NT, +BS Extremities: No c/c/e Neuro: face symmetric, strength grossly equal, no focal deficit Skin: warm and dry, no rashes/lesions/errythema MSK: normal ROM, no joint swelling/erythema Results & Data Results & Data ([facility]) Vital Signs (Past 12 Hours) Vital Signs Temp Pulse Resp BP Pulse Ox 03/22/21 08:46 36.5 C 77 18 134/72 94
[2021-03-22] MEDS: ALBUTEROL HFA 8 GM INHALER INH PRN (22:34)
[2021-03-23] MEDS: amLODIPine BESYLATE 5 MG TAB PO SCH (09:13)
[2021-03-23] MEDS: CHOLECALCIFEROL 1,000 UNITS 25 MCG TAB PO SCH (09:14)
[2021-03-23] MEDS: ASCORBIC ACID 500 MG TAB PO SCH (09:14)
[2021-03-23] MEDS: ENOXAPARIN INJ 120 MG/0.8 ML SYR SQ SCH (09:15)
[2021-03-23] MEDS: dexAMETHasone 6 MG in SYRINGE 0 ML IV SCH (09:15)
[2021-03-23] MEDS: FOLIC ACID 1 MG TAB PO SCH (09:18)
[2021-03-23] MEDS: FUROSEMIDE 40 MG TAB PO SCH (09:18)
[2021-03-23] MEDS: FAMOTIDINE 10 MG TABLET PO SCH (09:18)
[2021-03-23] MEDS: guaiFENesin 600 MG TABCR PO SCH (09:19)
[2021-03-23] MEDS: LOSARTAN POTASSIUM 50 MG TAB PO SCH (09:19)
[2021-03-23] MEDS: ADVANCED PROBIOTIC 1250 MG CAPSULE PO SCH (09:19)
[2021-03-23] MEDS: THIAMINE HCL 100 MG TAB PO SCH (09:20)
[2021-03-23] MEDS: TRIAMTERENE/HCTZ 37.5/25MG TAB PO SCH (09:20)
[2021-03-23] MEDS: INSULIN ASPART 100 UNITS/ML 3 ML PEN SC SCH ×2 (09:47→13:55)
[2021-03-23] MEDS: MAGNESIUM OXIDE 400 MG TAB PO SCH (13:38)
--- NOTE | 2021-03-23 14:09 | Discharge Summary ---
Date of Service March 23, 2021 Admission HPI Per Admitting Provider Patient is a 71-year-old male with history of hypertension, CKD stage III, obstructive sleep apnea and intolerance to CPAP, prediabetes, dyslipidemia, GERD, hypothyroidism as per records and other medical problems presents with history of worsening shortness of breath, cough with clear expectoration since 10 days duration. Patient recently completed a course of azithromycin, prednisone for 5 days prescribed by PCP without any relief. He states having dyspnea at rest and with activity as well. Also states having decreased appetite, generalized weakness. He denies any sick contact, recent travel. He admits to having fever since 3 days duration intermittently. Patient reports having low back pain intermittently since past 2 years, dull aching in nature, nonradiating, not associated with any spasms. He has been using ibuprofen, Tylenol on and off for controlling his back pain. Denies any history of chest pain, palpitations, dizziness, pedal edema, wheezing, hemoptysis, headache, change in vision, nausea, vomiting, abdominal pain, dysuria, hematuria, loss of taste or smell. Admission Exam Per Admitting Provider Physical Exam: Vitals signs as noted above General Appearance:Moderately built and nourished, no apparent distress Head: normocephalic, Atraumatic Eyes: normal inspection, EOMI Neck: supple, Trachea midline Respiratory/Chest: Decreased breath sounds, CTA, No accessory muscle use Cardiovascular: S1, S2, No murmur Abdomen/GI:Soft, Non tender, Bowel sounds present Extremities/Musculoskeletal:normal inspection, no edema Neurologic/Psych:AAOX3, grossly no focal neurological deficits Skin: normal color, warm Principal Diagnosis Acute hypoxic respiratory failure Pneumonia due to novel coronavirus (COVID-19) Acute kidney injury, resolved Discharge Exam General: A&Ox3 HENT: NCAT, MMM, EOMI Eyes: PERRLA Neck: Supple, normal range of motion CVS: normal rate and rhythm Resp: b/l coarse breath sounds Abdomen: Soft, ND/NT, +BS Extremities: No c/c/e Neuro: face symmetric, strength grossly equal, no focal deficit Skin: warm and dry, no rashes/lesions/errythema MSK: normal ROM, no joint swelling/erythema Discharge Data Allergies Allergy/AdvReac Type Severity Reaction Status Date / Time peanut Allergy Sneezing Unverified 03/15/21 11:26 Consultations 05/28/21 14:57 Consult Pulmonology Routine Ordered Studies Laboratory Results WBC 10.12 K/uL (4.8-10.8) 03/22/21 06:19 RBC 4.60 M/uL (4.7-6.1) L 03/22/21 06:19 Hgb 13.8 g/dL (14.0-18.0) L 03/22/21 06:19 Hct 41.0 % (42-52) L 03/22/21 06:19 MCV 89.1 fL (80-100) 03/22/21 06:19 MCH 30.0 pg (25-34) 03/22/21 06:19 MCHC 33.7 g/dL (32-36) 03/22/21 06:19 RDW Std Deviation 43.3 fL (36.4-46.3) 03/22/21 06:19 RDW Coeff of Anni 13.4 % (11.5-14.5) 03/22/21 06:19 Plt Count 439 K/uL (130-400) H 03/22/21 06:19 MPV 8.9 fL (7.4-10.4) 03/22/21 06:19 Immature Gran % (Auto) 1.7 % 03/22/21 06:19 Neut % (Auto) 77.7 % 03/22/21 06:19 Lymph % (Auto) 13.6 % 03/22/21 06:19 [place] % (Auto) 4.8 % 03/22/21 06:19 Eos % (Auto) 2.1 % 03/22/21 06:19 Baso % (Auto) 0.1 % 03/22/21 06:19 Neut # (Auto) 7.86 K/uL (1.4-6.5) H 03/22/21 06:19 Lymph # (Auto) 1.38 K/uL (1.2-3.4) 03/22/21 06:19 [place] # (Auto) 0.49 K/uL (0.11-0.59) 03/22/21 06:19 Eos # (Auto) 0.21 K/uL (0-0.5) 03/22/21 06:19 Baso # (Auto) 0.01 K/uL (0-0.2) 03/22/21 06:19 Immature Gran # (Auto) 0.17 K/uL (0.00-0.02) H 03/22/21 06:19 PT 10.4 Seconds (9.0-12.0) 03/15/21 08:57 INR 1.0 (0.9-1.1) 03/15/21 08:57 APTT 64.6 Seconds (21.0-31.0) H* 03/18/21 06:18 PTT Ratio 2.5 03/18/21 06:18 D-Dimer 880 ug/L FEU (0-500) H* 03/16/21 15:17 ABG pH 7.48 (7.35-7.45) H 03/15/21 23:21 ABG pCO2 32 mmHg (35-46) L 03/15/21 23:21 ABG pO2 76 mmHg (80-95) L 03/15/21 23:21 ABG HCO3 23 mmol/L (19-24) 03/15/21 23:21 ABG O2 Saturation 96.3 % (90-95) H 03/15/21 23:21 ABG Base Excess 0.1 mEq/L (-9-1.8) 03/15/21 23:21 Abdelrahman Test Pos (Pos) 03/15/21 23:21 Oxygen Given 100% FI02 03/15/21 23:21 Sodium 137 mmol/L (136-145) 03/22/21 06:18 Potassium 3.6 mmol/L (3.5-5.1) 03/22/21 06:18 Chloride 102 mmol/L (98-107) 03/22/21 06:18 Carbon Dioxide 29 mmol/L (21-32) 03/22/21 06:18 Anion Gap 6.0 (3-11) 03/22/21 06:18 BUN 26 mg/dl (7-18) H 03/22/21 06:18 Creatinine 1.27 mg/dl (0.6-1.4) 03/22/21 06:18 Est Cr Clr Drug Dosing 68.7 ml/min 03/22/21 06:18 Est GFR ( Amer) 65.4 ml/min 03/22/21 06:18 Est GFR (Non-Af Amer) 56.5 ml/min 03/22/21 06:18 BUN/Creatinine Ratio 20.5 (10-20) H 03/22/21 06:18 Glucose 94 mg/dl (70-99) 03/22/21 06:18 POC Glucose 124 mg/dl (70-99) H 03/23/21 13:35 Estimat Average Glucose 146 mg/dl 03/16/21 06:32 Hemoglobin A1c 6.7 % (4.5-5.6) H 03/16/21 06:32 Lactate 1.3 mmol/L (0.4-2.0) 03/15/21 08:57 Calcium 8.2 mg/dl (8.5-10.1) L 03/22/21 06:18 Phosphorus 2.4 mg/dl (2.5-4.9) L 03/15/21 10:08 Magnesium 2.4 mg/dl (1.8-2.4) 03/16/21 06:32 Ferritin 710.9 ng/ml (8-388) H 03/22/21 06:18 Total Bilirubin 0.5 mg/dl (0.2-1) 03/15/21 23:21 AST 112 U/L (15-37) H 03/20/21 06:18 ALT 154 U/L (12-78) H 03/20/21 06:18 Alkaline Phosphatase 83 U/L (45-117) 03/15/21 23:21 Troponin I < 0.015 ng/ml (0-0.045) 03/15/21 23:21 C-Reactive Protein 0.92 mg/dl (0-0.29) H 03/22/21 06:18 NT-Pro-B Natriuret Pep 69 pg/ml (0-900) 03/16/21 15:17 Total Protein 7.8 gm/dl (6.4-8.2) 03/15/21 23:21 Albumin 2.8 gm/dl (3.4-5.0) L 03/15/21 23:21 Globulin 5.0 gm/dl (2.5-4.0) H 03/15/21 23:21 Albumin/Globulin Ratio 0.6 (0.9-2) L 03/15/21 23:21 Procalcitonin 4.06 ng/ml (0-0.5) H 03/17/21 06:23 Urine Color Dark Yellow 03/15/21 16:45 Urine Appearance Clear (Clear) 03/15/21 16:45 Urine pH 5.5 (4.5-7.5) 03/15/21 16:45 Ur Specific [place] 1.030 (1.000-1.030) 03/15/21 16:45 Urine Protein 2+ (Negative) H 03/15/21 16:45 Urine Glucose (UA) 2+ (Negative) H 03/15/21 16:45 Urine Ketones Trace (Negative) H 03/15/21 16:45 Urine Blood 1+ (Negative) H 03/15/21 16:45 Urine Nitrite Negative (Negative) 03/15/21 16:45 Urine Bilirubin Negative (Negative) 03/15/21 16:45 Urine Urobilinogen Negative (Negative) 03/15/21 16:45 Ur Leukocyte Esterase Negative (Negative) 03/15/21 16:45 Urine WBC (Auto) 5-10 /hpf (0-5) H 03/15/21 16:45 Urine RBC (Auto) 0-4 /hpf (0-4) 03/15/21 16:45 U Hyaline Cast (Auto) >30 /lpf (0-5) H 03/15/21 16:45 U Epithel Cells (Auto) >30 /lpf (0-5) H 03/15/21 16:45 Urine Bacteria (Auto) Negative (Negative) 03/15/21 16:45 Ur Renal Epithelial Cell 0-5 /lpf (0-5) 03/15/21 16:45 Granular Casts 1-5 /lpf (0) H 03/15/21 16:45 WBC Casts 1-5 /lpf (0) H 03/15/21 16:45 COVID-19 Eval Order Covid19 at [facility] 03/15/21 08:55 SARS-CoV-2 (PCR) POSITIVE (Negative) A* 03/15/21 08:55 Impressions Chest X-Ray 03/15/21 08:51 XR chest 1V portable HISTORY: SEPSIS COMPARISON: Chest 10/17/2012. FINDINGS: No pneumothorax. No pleural effusions. The heart is mildly enlarged. There are patchy peripheral bilateral airspace opacities, right greater than left. There is mild elevation of the right hemidiaphragm, unchanged. IMPRESSION: Hazy patchy peripheral airspace opacities, right greater than left. This favors a viral pneumonia. ACT 112: Negative or not required by law. Electronically signed by: Preston Dennis M.D. 03/15/2021 9:38 AM Diabetes Follow up Diabetes Follow-up Needed for Newly Diagnosed Diabetes Hospital Course (1) Pneumonia due to COVID-19 virus: Acute respiratory failure with hypoxia COVID Pneumonia Required significant oxygen supplementation while hospitalized. Received a course of decadron and completed a course of remdesivir. Was given short course of antibiotics including Augmentin. COVID Screen: Positive on March 15, 2021 CXR:Hazy patchy peripheral airspace opacities, right greater than left. This favors a viral pneumonia. given Tocilizumab on 03/16/21 was on IV heparin weight-based protocol for concern of possible thromboembolic event/PE Change to therapeutic dose of IV Lovenox D-dimer elevated which is nonspecific in the setting of acute illness/COVID-[address] of chest could not be done secondary to CKD stage III Pulmonology was consulted and followed the patient. Ultimately he did well clinically and hypoxia completely resolved after a few days. It was not felt necessary to screen him for PE at this time. He was not discharged on anticoagulation as a result. Two step test performed at discharge confirmed the resolution of hypoxia at rest and with ambulation. Close primary care followup is recommended. Total Time Total Time Spent Total Time Spent (In Minutes): 60 Total Time Includes: Examination of the Patient, Discharge Planning, Medication Reconciliation and Communication With Other Providers Discharge Plan Discharge Items Patient Disposition: Home - Self-Care Reason For Visit: COVID 19 PNEUMONIA Discharge Diagnosis: Acute hypoxic respiratory failure Pneumonia due to novel coronavirus (COVID-19) Acute kidney injury, resolved Condition on Discharge: Good Activity: Resume your previous activity Non-emergency contact: Primary Care Provider Call non-emergency contact if: you have any medication questions and your symptoms worsen Follow-up/Referrals: Alban Gordillo DO [Primary Care Provider] - 03/28/21 11:40 am (Date & Time 03/28/2021 11:40 AM Provider Ivy Vick MD Department [facility] PLEASE NOTE THAT THIS IS A TELEHEALTH VISIT. PLEASE FOLLOW THE INSTRUCTIONS PROVIDED IN YOUR EMAIL. IF YOU HAVE ANY QUESTIONS REGARDING THIS APPOINTMENT, PLEASE CALL .) Diet: Carb Consistent or DM2 and Heart Healthy Addtl Attending Provider Instructions: Please take all medications as instructed on discharge list below. Please follow the current guidance from the [place] Dept of Health which states that based on your severe illness wt COVID-19, 20 days of home isolation is recommended. Please use health.[place].gov or cdc.gov for more information. It is recommended that you follow-up with your primary care provider within one week of discharge from the hospital to ensure you are still progressing well in recovery from you illness. It was a pleasure taking care of you! Please call if you have any questions or problems. You can reach a [facility] hospitalist on duty at [facility] 24 hours a day by calling [phone]. Take care of yourself. Tonie Randhawa, DO [facility] Hospitalist Pending Studies at Discharge: No Stand-Alone Forms: My [facility], Smoking Cessation Medications and DC Order Prescriptions: Continued losartan 50 mg Tablet 50 mg PO DAILY Qty: 0 RF: 0 amlodipine 5 mg tablet 5 mg PO DAILY RF: 0 cyclobenzaprine 5 mg tablet 5 mg PO TID PRN (Reason: Spasms) RF: 0 triamterene-hydrochlorothiazid 37.5-25 mg tablet 1 tab PO DAILY RF: 0 furosemide 40 mg tablet 40 mg PO DAILY RF: 0 ascorbic acid (vitamin C) 1,000 mg PO DAILY RF: 0 cholecalciferol (vitamin D3) 5,000 units PO DAILY RF: 0 magnesium citrate 160 mg PO DAILY RF: 0 Discharge Orders: Discharge Order (Routine); Ordered 03/23/21 Ordered By: Tonie Barrera/Other Patient Handouts: Prediabetes, 5 Steps for Eating Healthier, A1C Admission Data Admit Date/Time: 03/15/21 11:01 Attending Provider: Tonie Randhawa Admit Provider: Murtaza Foster Primary Care Provider: Alban Gordillo Other Providers: Murtaza Foster ; Tiago Means Other Interventions: Discharge Summary Assessment (RN) Last Done: 03/23/21 14:30
== END 2021-03-23 15:27 | disposition home or self-care (01) | DRG 177 ==
LOC: ED 08:08 → 2N 11:01 → SUATTDRO 11:01 → 2N 13:17 → 2S 03-16 00:45 → 3W 03-20 16:47